=== PATIENT | male | born 1940 | race Asian ===

== ENCOUNTER 2017-02-18 16:29 | Emergency (ER) | payer MEDICARE, MEDICAID ==
[2017-02-18 17:02] VITALS: BP 130/74
[2017-02-18] MEDS ORDERED: DOXYcycline CAP(*) 100 MG PO ONE (18:51)
--- NOTE | 2017-02-18 19:17 | UC ---
General HPI - HPI Summary HPI Summary: This is a 76 yo male with history of heart disease who presents for evaluation after a tick was removed last night. Unsure how long the tick was attached. No fever or other associated symptoms. - History of Current Complaint Chief Complaint: UCSkin Stated Complaint: TICK BITE Pain Intensity: 0 - Allergy/Home Medications Allergies/Adverse Reactions: Allergies Allergy/AdvReac Type Severity Reaction Status Date / Time No Known Allergies Allergy Verified 02/18/17 17:02 PMH/Surg Hx/FS Hx/Imm Hx Cardiovascular History: Cardiac Disease - Surgical History Surgical History: None - Family History Known Family History: Positive: Hypertension - Social History Alcohol Use: None Substance Use Type: None Smoking Status (MU): Never Smoked Tobacco Review of Systems Constitutional: Negative Skin: Negative Eyes: Negative ENT: Negative Respiratory: Negative Cardiovascular: Negative Gastrointestinal: Negative Genitourinary: Negative Motor: Negative Neurovascular: Negative Musculoskeletal: Negative Neurological: Negative Psychological: Negative All Other Systems Reviewed And Are Negative: Yes Physical Exam Triage Information Reviewed: Yes Appearance: Well-Appearing Vital Signs: Initial Vital Signs Temp 98.0 F 02/18/17 16:59 Pulse 53 02/18/17 16:59 Resp 18 02/18/17 16:59 BP 130/74 02/18/17 16:59 Pulse Ox 98 02/18/17 16:59 Vital Signs Reviewed: Yes Respiratory: Positive: Chest non-tender, Lungs clear. Negative: Crackles, Rhonchi, Wheezing Cardiovascular Exam: Normal Cardiovascular: Positive: RRR, No Murmur Musculoskeletal Exam: Normal Skin: Positive: Other - small punctate area of redness where the tick was removed from his leg Course/Dx - Course Course Of Treatment: This is a 76 yo gentleman who presented after tick bite that was removed last night. Recommend prophylaxis. - Differential Dx - Multi-Symptom Provider Diagnoses: 1. Tick bite Discharge - Discharge Plan Condition: Stable Disposition: HOME Patient Education Materials: Lyme Disease (ED), Tick Bite (ED) Referrals: Laurie Dempsey MD [Primary Care Provider] - If Needed Additional Instructions: Activity: No restrictions Instructions: 1. Monitor for signs of Lyme disease 2. No further antibiotics are necessary at this time
== END 2017-02-18 19:07 | disposition home or self-care (01) ==
LOC: UCEAST 16:29
DX: S80.869A Insect bite (nonvenomous), unspecified lower leg, initial encounter (principal); W57.XXXA Bitten or stung by nonvenomous insect and other nonvenomous arthropods, initial encounter; Y93.9 Activity, unspecified; Y92.9 Unspecified place or not applicable; Y99.9 Unspecified external cause status
CPT/HCPCS: 99212; A9270-GY; G0463

== ENCOUNTER 2017-08-27 22:02 | Observation (INO) | payer MEDICARE, MEDICAID ==
[2017-08-27] MEDS ORDERED: NS 0.9% 1000 ML* 1,000 ML IV SCH ×2 (22:15→23:00)
[2017-08-27 22:39] LABS: ABS Basophils 0 10^3/ul (0-0.2); ABS Eosinophils 0.3 10^3/ul (0-0.6); ABS Lymphocytes 2.5 10^3/ul (1.0-4.8); ABS Monocytes 0.8 10^3/ul (0-0.8); ABS Neutrophils 5.4 10^3/ul (1.5-7.7); ABS Nucleated RBC 0 10^3/ul; Eosinophil % 3.3 % (0-6); Hematocrit 42 % (42-52); Hemoglobin 14.1 g/dl (14.0-18.0); Lymphocyte % 27.4 % (25-47); Mean Corpuscular HGB Conc 34 g/dl (31-36); Mean Corpuscular Hemoglobin 31 pg (27-31); Mean Corpuscular Volume 92 fL (80-94); Mean Platelet Volume 8 um3 (7.4-10.4); Nucleated Red Blood Cells % 0; Platelet Count 196 10^3/ul (150-450); Red Blood Count 4.52 10^6/ul (4.0-5.4); Red Cell Distribution Width 14 % (10.5-15); White Blood Count 9.1 10^3/ul (3.5-10.8)
[2017-08-27 22:53] LABS: INR 0.89 (0.77-1.02)
[2017-08-27 22:54] LABS: EGFR Non-African American 65.4 (>60)
[2017-08-27] MEDS ORDERED: Aspirin EC TAB* 325 MG PO ONE (22:59)
[2017-08-27] MEDS ORDERED: Aspirin EC TAB* 325 MG ONE (23:02)
[2017-08-27] MEDS ORDERED: Acetaminophen TAB* 325 MG PO PRN (23:52)
--- NOTE | 2017-08-28 00:38 | ED ---
Ovidio Barksdale Tecjoon, scribed for Simon Stubbs MD on 08/27/17 at 2300 . Progress - Progress Note Progress Note: An EKG, taken 2255, reveals NSR (66 BPM), normal axis intervals and ST. CT Head reveals, per radiologist, IMPRESSION: No CT evidence of acute cortical infarction, acute intracranial hemorrhage or hydrocephalus noted. ED physician has reviewed this radiology report. - Results/Orders Results/Orders: CBC, CMP all wnl. Head CT -- no acute changes Re-Evaluation - Re-Evaluation First Eval Change: Improved - NIHSS down to 0-1. There may be the slightest of facial droop. Course/Dx - Course Course Of Treatment: Patient's NIH stroke scale has fallen to 0-1. Telestroke neurologist recommends no TPA. We will hydrate the patient and admit him. Dr Sykes, hospitalist eval at bedside. Admit for further. Pt stable and comfortable. No headache. - Diagnoses Provider Diagnoses: TIA (transient ischemic attack), Near syncope - Provider Notifications Instructed by Provider To: Admit As Inpatient The documentation as recorded by the Ovidio tolentino Tecjoon accurately reflects the service I personally performed and the decisions made by , Simon Stubbs MD.
[2017-08-28 02:25] LABS: Urine Appearance Clear; Urine Blood 1+ (Negative); Urine Color Straw; Urine Ketones Negative (Negative); Urine Protein Negative (Negative); Urine Specific Gravity 1.005 (1.010-1.030); Urine Urobilinogen Negative (Negative)
--- NOTE | 2017-08-28 04:29 | HP ---
ADMISSION HISTORY AND PHYSICAL: DATE OF ADMISSION: 08/27/17 PRIMARY CARE PROVIDER: Dr. Dempsey. HEALTHCARE PROXY: His daughter. CODE STATUS: Full. SOURCE OF INFORMATION: History obtained from interview with the patient with both his daughter and son-in-law translating Mandarin Norwegian, discussion with both ED providers, Dr. Amos as well as . RELIABILITY: Fair to poor. CHIEF COMPLAINT: Loss of consciousness, questionable right-sided weakness. HISTORY OF PRESENT ILLNESS: This is a 77-year-old man, past medical history includes CAD with an OK of 20 years prior in [place]. He has been in his usual state of health, last known illness or malady included a fall around [place] without loss of consciousness on the evening during a Bible study where reportedly a conversation became heated and he got "worked up." He felt as if the blood was rushing from the right side of his brain to the left side of his brain, also described as a "flushing" followed by sudden loss of consciousness. The loss of consciousness may have lasted for 10 minutes, although family notes he also may have just not spoken while unconscious. He remained on the chair the entire time while he was unconscious and when he awoke there was no confusion, no slurred speech. Denied any chest pain or shortness of breath, nausea, palpitations before losing consciousness; however, after waking did feel dizzy. Denied headache, although presenting history indicated that he had had a headache, family and the patient deny vehemently. After waking, the gave him a medication, which is a Norwegian medication "for heart attack." She has the bottle with her today and it is an unmarked bottle without indication for what its contents may contain. In the emergency room, he had an episode of nausea with vomiting. He denies any numbness or tingling or weakness in any of his extremities before or after his loss of consciousness, and his only complaint was dizziness. EMS was activated and reportedly was concerned for a right-sided facial droop. Code candida was activated and upon arrival to the emergency room, it was scored as a 4 on a NIH stroke scale; however, the paperwork with the chart does not indicate for what he received any score on the NIH stroke scale. The patient was evaluated by [facility] from [place], score was 1 on the NIH stroke scale and for his improving symptoms from NIH stroke scale of 4 to 1, tPA was not recommended. The hospitalist service was consulted for admission. PAST MEDICAL HISTORY: Includes CAD with an OK approximately 20 years prior to presentation and a history of vertigo. MEDICATIONS: None. ALLERGIES: None. FAMILY HISTORY: No history of CAD or CVAs. SOCIAL HISTORY: No tobacco or alcohol. 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 He moved to the [facility] from [place] in the year 1999. He lives with his and his family lives nearby. REVIEW OF SYSTEMS: As per HPI includes sensation of dizziness and suspected loss of consciousness. Otherwise, all other systems reviewed are negative. PHYSICAL EXAMINATION GENERAL: He appears stated age, lying at 45 degrees in bed. He is interactive. He has his eyes closed. He is in no apparent distress. VITAL SIGNS: In the emergency room, blood pressure 152/85, heart rate 69, respiratory rate 15, is 96% on room air, T-max 98.2. HEENT: His oropharynx is clear. He has moist mucous membranes. His sclerae are anicteric. NECK: He has non-elevated JVD. He has no cervical or supraclavicular lymphadenopathy. LUNGS: Clear to auscultation. HEART: He has a regular rate and rhythm. He has no murmurs, rubs, or gallops. ABDOMEN: Soft, nontender, nondistended. EXTREMITIES: Warm and well perfused without clubbing, cyanosis, or edema. NEUROLOGIC: He is alert and oriented x3. His cranial nerves II through XII are intact. There was concern for potentially a slight right facial droop that improved when asked to concentrate and tried to elicit a vigorous smile. He has a 4+ strength throughout. He has a right pronator drift, downgoing Babinski. Gait was not assessed. He passed bedside swallow evaluation. No apparent anxiety, agitation, or depression. LABORATORY DATA: Reviewed. Notable for white blood cell count 9.1, hemoglobin 14.1, and platelets 196. INR 0.89. BUN 21, creatinine 1.09. LFTs are within normal limits. DIAGNOSTIC DATA: Brain CT, preliminary read, no hemorrhage, no stroke. EKG, normal sinus rhythm, normal axis, normal intervals, late R-wave progression. No ST or T-wave changes. ASSESSMENT AND PLAN: This is a 77-year-old man with a past medical history of coronary artery disease, had sudden loss of consciousness with uncertain right- sided weakness upon wakening. Per family report and patient, he did not experience any right-sided weakness, similarly experienced no headache, which was reported as a presenting symptom on presentation. I think this patient's presentation is more consistent with syncope than that of a transient ischemic attack, although given difficult acquisition of history, I support a workup for transient ischemic attack in a 77-year-old gentleman with known history of coronary artery disease, suspected vascular disease. 1. Loss of consciousness/suspected transient ischemic attack. We will check MRI of brain with MRA head and neck. Place on telemetry. Check lipids in the morning. Continue neuro checks over night. Received full dose aspirin in the emergency room, we will continue 81 in the morning. Add on hemoglobin A1c. We will not check transthoracic echocardiogram at this time given age and no vascular risk factors. Low suspicion for embolic disease, unless MRI were to change this thinking. 2. Loss of consciousness, most likely stroke in the setting of known coronary artery disease. Check troponin as well as TSH. Place on telemetry. 3. Coronary artery disease, on no medications. Start aspirin 81 mg. 4. DVT prophylaxis, heparin subcu. 5. Code status is full. [id number]/[facility] #: [id number] MTDD
[2017-08-28] MEDS ORDERED: Heparin VIAL(*) 5000 UNITS/ML VIAL (FIVE THOUSAND) SUBCUT SCH (06:00)
--- NOTE | 2017-08-28 07:43 | RAD ---
HISTORY: Stroke COMPARISONS: None TECHNIQUE: Multiple contiguous axial CT scans were obtained of the head without intravenous contrast. FINDINGS: HEMORRHAGE/INFARCT: There is no hemorrhage or acute infarct. MASSES/SHIFT: There is no mass or shift. EXTRA-AXIAL SPACES: There are no extra-axial fluid collections. SULCI AND VENTRICLES: There is mild diffuse and proportional enlargement of the sulci and ventricles. CEREBRUM: There is mild hypoattenuation of the periventricular and subcortical white matter. BRAINSTEM: There are no focal parenchymal abnormalities. CEREBELLUM: There are no focal parenchymal abnormalities. VESSELS: The vessels are grossly normal. PARANASAL SINUSES: There is mild mucosal thickening of the ethmoid air cells. ORBITS: The orbits are unremarkable. BONES AND SOFT TISSUE: No bone or soft tissue abnormalities are noted. OTHER: None IMPRESSION: 1. NO ACUTE INTRACRANIAL PATHOLOGY. 2. MILD DIFFUSE INVOLUTIONAL CHANGE WITH MILD CHRONIC SMALL VESSEL ISCHEMIC CHANGES. 3. PRELIMINARY FINDINGS WERE DISCUSSED WITH DR. MCCORMACK BY DR. MARS AT 10:39 PM ON SUNDAY, AUGUST 27, 2017.
[2017-08-28] MEDS ORDERED: Aspirin Low Dose CHEW TAB* 81 MG PO SCH (09:00)
--- NOTE | 2017-08-28 09:18 | PN ---
Progress Note - Progress Note Date of Service: 08/28/17 Note: Discharge Note Primary diagnosis: syncope Secondary diagnoses: CAD, history of [place] vertigo hypokalemia hypothyroid Consultants: none Procedures: none Complications: none Pertinent lab/radiology tests: troponin negative CT brain: involutional changes Laboratory Tests 08/27/17 08/27/17 08/28/17 22:20 22:20 06:10 Potassium 3.4 L 3.8 Glucose 136 H Hemoglobin A1c 6.0 H Magnesium 2.0 Troponin I 0.00 0.05 H* LDL Cholesterol 97 TSH 5.71 H Tests pending upon discharge: MRI brain MRA head/neck 24h holter monitor exercise treadmill test Physical exam: Alert, no distress CN II-XII intact Motor 5/5 UE, LE no pronator drift
[2017-08-28] MEDS ORDERED: Potassium Chlor TAB* 10 MEQ TAB.ER PO ONE (09:22)
[2017-08-28 11:31] VITALS: BP 131/65
--- NOTE | 2017-08-28 14:46 | ED ---
Graham Barksdale Jennifer, scribed for Viktor Amos on 08/27/17 at 2215 . Neurological HPI - HPI Summary HPI Summary: (Initial evaluation by the charge nurse desk at 22:01) The patient is a 77 year old male brought in by ambulance from his home. Twenty minutes prior to arrival (at 21:30), the patient developed a severe headache to his left side. EMS reports that the patient has generalized weakness. The patient was sent to CT. (Patient returned from CT at 22:18 and is now in room 19): I am informed that the patient vomited in the CT scanner. He complains of left- sided headache. He responds to questions. He remembers his name, age, and birthday. LEVEL 5 CAVEAT: HPI limited by state of patient - History of Current Complaint Stated Complaint: POSS STROKE Time Seen by Provider: 08/27/17 22:07 Hx Obtained From: Family/Electrical Line Splicer, EMS Hx From Patient Unobtainable Due To: Other - State of patient Onset/Duration: Started minutes ago - onset today at 21:30, Still Present Timing: Constant Current Severity: Moderate Alleviating: Nothing - Allergy/Home Medications Allergies/Adverse Reactions: Allergies Allergy/AdvReac Type Severity Reaction Status Date / Time No Known Allergies Allergy Verified 02/18/17 17:02 PMH/Surg Hx/FS Hx/Imm Hx Previously Healthy: No - LEVEL 5 CAVEAT: PMH limited by state of patient Cardiovascular History: Reports: Hx Coronary Artery Disease - Family History Known Family History: Positive: Hypertension - Social History Alcohol Use: None Substance Use Type: Reports: None Smoking Status (MU): Never Smoked Tobacco Review of Systems - ROS Summary Review of Systems Summary: LEVEL 5 CAVEAT: ROS limited by state of patient Positive: Headache - left-sided, Weakness - generalized All Other Systems Reviewed And Are Negative: No Physical Exam - Summary Physical Exam Summary: Appearance: Well appearing, no pain distress Skin: warm, dry, reflects adequate perfusion Head/face: normal Eyes: EOMI, JAYLA ENT: normal Neck: supple, non-tender Respiratory: CTA, breath sounds present Cardiovascular: RRR, pulses symmetrical Abdomen: non-tender, soft Bowel: present Musculoskeletal: normal, strength/ROM intact Neuro: Alert. Right facial droop. NIH = 4. See NIH Stroke Scale. Triage Information Reviewed: Yes Vital Signs On Initial Exam: Initial Vitals Temp Pulse Resp BP Pulse Ox 98.2 F 63 20 128/111 95 08/27/17 22:05 08/27/17 22:05 08/27/17 22:05 08/27/17 22:05 08/27/17 22:05 Vital Signs Reviewed: Yes Diagnostics - Vital Signs Vital Signs Temp Pulse Resp BP Pulse Ox 08/27/17 23:30 68 15 152/85 94 08/27/17 23:00 66 13 151/87 96 08/27/17 22:30 67 16 144/86 96 08/27/17 22:29 67 15 95 08/27/17 22:25 128/111 08/27/17 22:05 98.2 F 63 20 128/111 95 - Laboratory Lab Results: Lab Results 08/27/17 08/27/17 08/27/17 Range/Units 22:20 22:20 22:20 WBC 9.1 (3.5-10.8) 10^3/ul RBC 4.52 (4.0-5.4) 10^6/ul Hgb 14.1 (14.0-18.0) g/dl Hct 42 (42-52) % MCV 92 (80-94) fL MCH 31 (27-31) pg MCHC 34 (31-36) g/dl RDW 14 (10.5-15) % Plt Count 196 (150-450) 10^3/ul MPV 8 (7.4-10.4) um3 Neut % (Auto) 59.6 (38-83) % Lymph % (Auto) 27.4 (25-47) % [place] % (Auto) 9.2 H (1-9) % Eos % (Auto) 3.3 (0-6) % Baso % (Auto) 0.5 (0-2) % Absolute Neuts (auto) 5.4 (1.5-7.7) 10^3/ul Absolute Lymphs (auto) 2.5 (1.0-4.8) 10^3/ul Absolute Monos (auto) 0.8 (0-0.8) 10^3/ul Absolute Eos (auto) 0.3 (0-0.6) 10^3/ul Absolute Basos (auto) 0 (0-0.2) 10^3/ul Absolute Nucleated RBC 0 10^3/ul Nucleated RBC % 0 INR (Anticoag Therapy) 0.89 (0.77-1.02) APTT 29.3 (26.0-36.3) seconds Sodium 138 (133-145) mmol/L Potassium 3.4 L (3.5-5.0) mmol/L Chloride 105 (101-111) mmol/L Carbon Dioxide 25 (22-32) mmol/L Anion Gap 8 (2-11) mmol/L BUN 21 (6-24) mg/dL Creatinine 1.09 (0.67-1.17) mg/dL Est GFR ( Amer) 84.1 (>60) Est GFR (Non-Af Amer) 65.4 (>60) BUN/Creatinine Ratio 19.3 (8-20) Glucose 136 H (70-100) mg/dL Hemoglobin A1c (4.0-5.6) % Calcium 9.2 (8.6-10.3) mg/dL Total Bilirubin 0.30 (0.2-1.0) mg/dL AST 25 (13-39) U/L ALT 26 (7-52) U/L Alkaline Phosphatase 70 (34-104) U/L Troponin I 0.00 (<0.04) ng/mL Total Protein 7.1 (6.4-8.9) g/dL Albumin 4.0 (3.2-5.2) g/dL Globulin 3.1 (2-4) g/dL Albumin/Globulin Ratio 1.3 (1-3) TSH 5.71 H (0.34-5.60) mcIU/mL Blood Type Antibody Screen 08/27/17 08/27/17 Range/Units 22:20 22:20 WBC (3.5-10.8) 10^3/ul RBC (4.0-5.4) 10^6/ul Hgb (14.0-18.0) g/dl Hct (42-52) % MCV (80-94) fL MCH (27-31) pg MCHC (31-36) g/dl RDW (10.5-15) % Plt Count (150-450) 10^3/ul MPV (7.4-10.4) um3 Neut % (Auto) (38-83) % Lymph % (Auto) (25-47) % [place] % (Auto) (1-9) % Eos % (Auto) (0-6) % Baso % (Auto) (0-2) % Absolute Neuts (auto) (1.5-7.7) 10^3/ul Absolute Lymphs (auto) (1.0-4.8) 10^3/ul Absolute Monos (auto) (0-0.8) 10^3/ul Absolute Eos (auto) (0-0.6) 10^3/ul Absolute Basos (auto) (0-0.2) 10^3/ul Absolute Nucleated RBC 10^3/ul Nucleated RBC % INR (Anticoag Therapy) (0.77-1.02) APTT (26.0-36.3) seconds Sodium (133-145) mmol/L Potassium (3.5-5.0) mmol/L Chloride (101-111) mmol/L Carbon Dioxide (22-32) mmol/L Anion Gap (2-11) mmol/L BUN (6-24) mg/dL Creatinine (0.67-1.17) mg/dL Est GFR ( Amer) (>60) Est GFR (Non-Af Amer) (>60) BUN/Creatinine Ratio (8-20) Glucose (70-100) mg/dL Hemoglobin A1c 6.0 H (4.0-5.6) % Calcium (8.6-10.3) mg/dL Total Bilirubin (0.2-1.0) mg/dL AST (13-39) U/L ALT (7-52) U/L Alkaline Phosphatase (34-104) U/L Troponin I (<0.04) ng/mL Total Protein (6.4-8.9) g/dL Albumin (3.2-5.2) g/dL Globulin (2-4) g/dL Albumin/Globulin Ratio (1-3) TSH (0.34-5.60) mcIU/mL Blood Type A Positive Antibody Screen Negative Result Diagrams: 08/27/17 22:20 08/28/17 06:10 Lab Statement: Any lab studies that have been ordered have been reviewed, and results considered in the medical decision making process. NIH Scale - NIH Scale Level of Consciousness: Alert/Keenly Responsive Ask Patient the Month and His/Her Age: Both Correct Ask Pt to Open/Close Eyes and Negative Stripper/Release Non-Paretic Hand: Both Correctly Best Gaze (Only Horizontal Eye Movement): Normal Visual Field Testing: No Visual Loss Facial Paresis-Pt to Smile & Close Eyes or Grimace Symmetry: Partial Paralysis Motor Function - Right Arm: No Drift-Holds 10 Seconds Motor Function - Left Arm: No Drift-Holds 10 Seconds Motor Function - Right Leg: No Drift-Holds 10 Seconds Motor Function - Left Leg: No Drift-Holds 10 Seconds Limb Ataxia-Must be out of Proportion to Weakness Present: Absent Sensory (Use Pinprick to Test Arms/Legs/Trunk/Face): Normal Best Language (Describe Picture, Name Items): Some Loss Dysarthria (Read Several Words): Slurs Some Words Extinction and Inattention: No Abnormality Total Score: 4 Re-Evaluation - Re-Evaluation First Eval Change: Improved - NIHSS down to 0-1. There may be the slightest of facial droop. Course/Dx - Course Course Of Treatment: The radiologist calls me at 22:37 and informs me that the CT Brain is negative. TELE-STROKE is in the room at at 22:40. Assessment/Plan: The patient is a 77 year old male brought in by ambulance complaining of left-sided headache and generalized weakness. NIH = 0. CT Brain was obtained with results communicated to me over the phone by the radiologist. Tele-Stroke was in the room to evaluate the patient. The patient will be signed out to Dr. Stubbs pending further workup. - Differential Dx Differential Diagnoses Neuro: Positive: Cerebrovascular Accident, Dysrhythmia, Hemorrhage, Intracranial Bleed, Migraine, Transient Ischemic Attack, Vasovagal Reaction - Diagnoses Provider Diagnoses: TIA (transient ischemic attack), Near syncope - Critical Care Time Critical Care Time: 30-74 min Discharge - Discharge Plan Condition: Fair Disposition: ADMITTED TO [facility] Discharge Disposition Comment: Signed out to Dr. Stubbs pending further workup. The documentation as recorded by the Graham tolentino Jennifer accurately reflects the service I personally performed and the decisions made by , Viktor Amos.
[2017-08-29] MEDS ORDERED: Levothyroxine TAB* 25 MCG TAB PO SCH (06:00)
--- NOTE | 2017-08-29 21:24 | DS ---
CC: Dr. Dempsey * DISCHARGE SUMMARY: DATE OF ADMISSION: 08/27/17 DATE OF DISCHARGE: 08/28/17 PRIMARY DIAGNOSIS: Syncope. SECONDARY DIAGNOSES: 1. Coronary artery disease. 2. History of myocardial infarction 20 years ago with minimally elevated troponin. 3. Vertigo history. 4. Hypokalemia. 5. Hypothyroidism, newly diagnosed. MEDICATIONS ON DISCHARGE: 1. Aspirin 81 mg p.o. every day. 2. Levothyroxine 25 mcg p.o. q.a.m. HOSPITAL COURSE: The patient was admitted with episode of syncope and a possible unilateral weakness. He was evaluated for stroke in the emergency room , but on further questioning, no stroke symptoms or findings were found. The patient had a head CT that showed only involutional changes. The patient was admitted to telemetry and had no significant arrhythmias on monitoring. His potassium was 3.4 on admission and was 3.8 after repletion. He had a mildly elevated glucose with A1c of 6.0. His troponin initially was 0.00 and ortiz to 0.05 on the morning of discharge. His troponin was felt to be minimally elevated and did not require inpatient stress testing or other workup. His TSH was found to be 5.71 and he was started on levothyroxine for mild hypothyroidism. The patient was ambulatory in his room, tolerating food well. No further episodes of syncope. The patient is stable for discharge and is advised to see primary care within a week. He is recommended to have MRI of his brain and MR angiogram of his head and neck due to the question of TIA or stroke and syncope. The patient was advised to have a 24-hour Holter monitor to look for arrhythmias occurring during normal daily activities as well as an exercise stress test to work up the minimally elevated troponin and a history of heart disease. The case was discussed with his daughter and she agreed with the plan. DISPOSITION: To home. ACTIVITY: As tolerated. DIET: Low salt and low fat. [id number]/[facility] #: [id number] KHADIJAH
== END 2017-08-28 11:50 | disposition home or self-care (01) ==
LOC: ED 22:02 → MEDTELE 23:52
PROVIDERS: ADMIT Internal Medicine; ATTEND Internal Medicine
DX: R55 Syncope and collapse (principal); I25.10 Atherosclerotic heart disease of native coronary artery without angina pectoris; I25.2 Old myocardial infarction; Z86.69 Personal history of other diseases of the nervous system and sense organs; E87.6 Hypokalemia; E03.9 Hypothyroidism, unspecified; Z79.82 Long term (current) use of aspirin
CPT/HCPCS: 36415; 70450; 80053; 80061; 81003; 81015; 83036; 83735; 84132; 84443; 84484; 85025; 85610; 85730; 86850; 86900; 86901; 93005; 99285; A9270-GY; G0378; J1644

== ENCOUNTER 2017-11-12 23:05 | Observation (INO) | payer MEDICARE, MEDICAID ==
[2017-11-12] MEDS ORDERED: Aspirin 81 mg CHEW TAB* 81 MG TAB.CHEW PO ONE (23:29)
[2017-11-12] MEDS ORDERED: NS 0.9% 1000 ML* 1,000 ML IV ONE (23:44)
[2017-11-12] MEDS ORDERED: Metoclopramide IV* 5 MG/ML 2 ML VIAL IV ONE (23:44)
[2017-11-12] MEDS ORDERED: diPHENhydraMINE IV* 50 MG/ML 1 ml VIAL (BENADRYL) IV ONE (23:44)
[2017-11-13 00:16] LABS: ABS Basophils 0 10^3/ul (0-0.2); ABS Eosinophils 0.2 10^3/ul (0-0.6); ABS Monocytes 0.5 10^3/ul (0-0.8); ABS Nucleated RBC 0 10^3/ul; Eosinophil % 3.2 % (0-6); Hematocrit 42 % (42-52); Lymphocyte % 18.1 % (25-47); Mean Corpuscular HGB Conc 34 g/dl (31-36); Mean Corpuscular Hemoglobin 31 pg (27-31); Mean Corpuscular Volume 93 fL (80-94); Mean Platelet Volume 8.3 um3 (7.4-10.4); Nucleated Red Blood Cells % 0; Platelet Count 184 10^3/ul (150-450); Red Blood Count 4.48 10^6/ul (4.0-5.4); Red Cell Distribution Width 15 % (10.5-15); White Blood Count 5.8 10^3/ul (3.5-10.8)
[2017-11-13 00:29] LABS: EGFR Non-African American 79.6 (>60)
[2017-11-13] MEDS ORDERED: Acetaminophen TAB* 325 MG PO PRN (04:15)
[2017-11-13] MEDS ORDERED: Ondansetron INJ* 2 MG/ML VIAL IV PRN (04:15)
[2017-11-13] MEDS ORDERED: CMCS: Melatonin (NF) 3 MG TAB PO PRN (04:15)
[2017-11-13] MEDS ORDERED: NS 0.9% 1000 ML* 1,000 ML IV SCH (04:15)
--- NOTE | 2017-11-13 04:19 | HP ---
H&P (Free Text) History and Physical: PCP: Josh Dempsey MD Date/Time: 11/13/2017 0145 CC: malaise HPI: Mr Singh is a 77YO male who speaks very little Uzbek HX CAD/VA & hypothyroidism who was in his usual state of health until around 2129 when he developed rapid onset of generalized malaise, mild chest pressure, SOB, nausea, sweating, but no palpitations or light-headedness. Upon arrival, his systolic was elevated to the 170-180 range and he felt better after it came down to the 140s. Otherwise, there are no exacerbating or alleviating factors. He F/C, cough , congestion, focal W/N/T, changes in bowel/bladder, or other complaints. 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 FamHx: negative for CAD/CVA ROS: as above, otherwise reviewed and all were negative vitals: Vital Signs Temp 36.9 C 11/13/17 02:47 Pulse 59 11/13/17 02:47 Resp 17 11/13/17 02:47 BP 140/73 11/13/17 02:47 Pulse Ox 96 11/13/17 02:47 Intake & Output 11/12/17 11/12/17 11/13/17 11:59 23:59 11:59 Weight 74.843 kg Constitutional: NAD, normally developed, well-nourished elderly male HEENM: atraumatic; sclera/conjunctiva: anicteric/clear; hearing: clinically intact; oropharynx: clear, mucosa moist Neck: soft tissue: non-tender, no nuchal rigidity; thyroid: normal Pulmonary: clear to auscultation bilaterally, good aeration, no accessory muscle use CV: RR/RR, normal S1S2, no carotid bruit, no jugular venous distention, 2+ B DP/ PT, no edema Abdominal: soft, non-distended, non-tender, no rebound/guarding/rigidity, normoactive bowel sounds, no hepatosplenomegaly or masses, no costovertebral angle tenderness Musculoskeletal: general: grossly intact, no tenderness w/ palpation Integumental: normal appearance and texture of exposed skin Psychiatric orientation: AA&O to PPS affect: calm mood: cooperative eye contact: fair content: reliable per responses: timely insight: fair to good Testing: Lab Results 11/13/17 11/13/17 11/13/17 Range/Units 00:00 00:00 00:00 WBC (3.5-10.8) 10^3/ul RBC (4.0-5.4) 10^6/ul Hgb (14.0-18.0) g/dl Hct (42-52) % MCV (80-94) fL MCH (27-31) pg MCHC (31-36) g/dl RDW (10.5-15) % Plt Count (150-450) 10^3/ul MPV (7.4-10.4) um3 Neut % (Auto) (38-83) % Lymph % (Auto) (25-47) % [place] % (Auto) (0-7) % Eos % (Auto) (0-6) % Baso % (Auto) (0-2) % Absolute Neuts (auto) (1.5-7.7) 10^3/ul Absolute Lymphs (auto) (1.0-4.8) 10^3/ul Absolute Monos (auto) (0-0.8) 10^3/ul Absolute Eos (auto) (0-0.6) 10^3/ul Absolute Basos (auto) (0-0.2) 10^3/ul Absolute Nucleated RBC 10^3/ul Nucleated RBC % APTT 37.3 H (26.0-36.3) seconds Sodium 139 (139-145) mmol/L Potassium 3.8 (3.5-5.0) mmol/L Chloride 108 (101-111) mmol/L Carbon Dioxide 23 (22-32) mmol/L Anion Gap 8 (2-11) mmol/L BUN 17 (6-24) mg/dL Creatinine 0.92 (0.67-1.17) mg/dL Est GFR ( Amer) 102.3 (>60) Est GFR (Non-Af Amer) 79.6 (>60) BUN/Creatinine Ratio 18.5 (8-20) Glucose 123 H (70-100) mg/dL Lactic Acid (0.5-2.0) mmol/L Calcium 8.8 (8.6-10.3) mg/dL Total Bilirubin 0.30 (0.2-1.0) mg/dL AST 24 (13-39) U/L ALT 29 (7-52) U/L Alkaline Phosphatase 64 (34-104) U/L Total Creatine Kinase 95 (10-223) U/L Troponin I 0.02 (<0.04) ng/mL B-Natriuretic Peptide 29 ( - 100) pg/mL Total Protein 6.9 (6.4-8.9) g/dL Albumin 4.0 (3.2-5.2) g/dL Globulin 2.9 (2-4) g/dL Albumin/Globulin Ratio 1.4 (1-3) TSH 4.09 (0.34-5.60) mcIU/mL 11/13/17 11/13/17 Range/Units 00:00 00:00 WBC 5.8 (3.5-10.8) 10^3/ul RBC 4.48 (4.0-5.4) 10^6/ul Hgb 14.0 (14.0-18.0) g/dl Hct 42 (42-52) % MCV 93 (80-94) fL MCH 31 (27-31) pg MCHC 34 (31-36) g/dl RDW 15 (10.5-15) % Plt Count 184 (150-450) 10^3/ul MPV 8.3 (7.4-10.4) um3 Neut % (Auto) 68.6 (38-83) % Lymph % (Auto) 18.1 L (25-47) % [place] % (Auto) 9.4 H (0-7) % Eos % (Auto) 3.2 (0-6) % Baso % (Auto) 0.7 (0-2) % Absolute Neuts (auto) 4.0 (1.5-7.7) 10^3/ul Absolute Lymphs (auto) 1.0 (1.0-4.8) 10^3/ul Absolute Monos (auto) 0.5 (0-0.8) 10^3/ul Absolute Eos (auto) 0.2 (0-0.6) 10^3/ul Absolute Basos (auto) 0 (0-0.2) 10^3/ul Absolute Nucleated RBC 0 10^3/ul Nucleated RBC % 0 APTT (26.0-36.3) seconds Sodium (139-145) mmol/L Potassium (3.5-5.0) mmol/L Chloride (101-111) mmol/L Carbon Dioxide (22-32) mmol/L Anion Gap (2-11) mmol/L BUN (6-24) mg/dL Creatinine (0.67-1.17) mg/dL Est GFR ( Amer) (>60) Est GFR (Non-Af Amer) (>60) BUN/Creatinine Ratio (8-20) Glucose (70-100) mg/dL Lactic Acid 1.2 (0.5-2.0) mmol/L Calcium (8.6-10.3) mg/dL Total Bilirubin (0.2-1.0) mg/dL AST (13-39) U/L ALT (7-52) U/L Alkaline Phosphatase (34-104) U/L Total Creatine Kinase (10-223) U/L Troponin I (<0.04) ng/mL B-Natriuretic Peptide ( - 100) pg/mL Total Protein (6.4-8.9) g/dL Albumin (3.2-5.2) g/dL Globulin (2-4) g/dL Albumin/Globulin Ratio (1-3) TSH (0.34-5.60) mcIU/mL ECG, personally reviewed: sinus bradycardia rate 58, no ischemia CXR, personally reviewed: no acute process Impression: 77M HX CAD/VA & hypothyroidism presents w/ chest pain for r/o ACS DIAGNOSIS & PLAN Primary chest pain r/o ACS : HX CAD/VA : telemetry : trend troponin : aspirin given in ED : check ECHO : supplemental oxygen : supportive care Secondary hypothyroidism : continue levothyroxine once reconciled Admission Rational: observation for r/o ACS DVTp: SCDs Code Status: full HCP:
--- NOTE | 2017-11-13 04:49 | ED ---
Ovidio Barksdale Tecjoon, scribed for Simon Stubbs MD on 11/12/17 at 2345 . 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 Patient states that he is not comfortable and seems to be in mild distress. The pain is rated 5/10 in severity. Symptoms aggravated by nothing. Symptoms alleviated by nothing. 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 Patient additionally reports headache. Patient denies vomiting, diaphoresis, SOB, chest pain. Patient was admitted on 08/27/2017, discharged 08/29. Dx with coronary artery disease, [place] 30 years ago. - History of Current Complaint Chief Complaint: EDChestPainROMI Stated Complaint: CHEST PAIN Time Seen by Provider: 11/12/17 23:35 Hx Obtained From: Patient Onset/Duration: Still Present Timing: Constant Current Severity: Moderate Pain Intensity: 5 Pain Scale Used: 0-10 Numeric Aggravating Factor(s): Nothing Alleviating Factor(s): Nothing Associated Signs and Symptoms: Positive: Negative - vomiting, diaphoresis, SOB, chest pain, Other: - headache - Allergy/Home Medications Allergies/Adverse Reactions: Allergies Allergy/AdvReac Type Severity Reaction Status Date / Time No Known Allergies Allergy Verified 02/18/17 17:02 PMH/Surg Hx/FS Hx/Imm Hx Previously Healthy: No Cardiovascular History: Reports: Hx Coronary Artery Disease Sensory History: Denies: Hx Contacts or Glasses, Hx Hearing Aid Opthamlomology History: Denies: Hx Contacts or Glasses Infectious Disease History: No Infectious Disease History: Denies: Traveled Outside the [place] in Last 30 Days - Family History Known Family History: Positive: Hypertension - Social History Lives: With Family Alcohol Use: None Hx Substance Use: No Substance Use Type: Reports: None Hx Tobacco Use: No Smoking Status (MU): Never Smoked Tobacco Review of Systems Negative: Fever, Skin Diaphoresis Positive: Other - elevated BP. Negative: Chest Pain Negative: Shortness Of Breath Negative: Vomiting Negative: Headache All Other Systems Reviewed And Are Negative: Yes Physical Exam - Summary Physical Exam Summary: Appearance: Well appearing, Looks uncomfortable Skin: warm, dry, reflects adequate perfusion Head/face: No temporal artery tenderness Eyes: EOMI, JAYLA ENT: normal Neck: supple, non-tender Respiratory: CTA, breath sounds present Cardiovascular: Bradycardic but regular Abdomen: non-tender, soft Bowel Sounds: present Musculoskeletal: normal, strength/ROM intact Neuro: normal, sensory motor intact, A&Ox3 Triage Information Reviewed: Yes Vital Signs On Initial Exam: Initial Vitals Temp Pulse Resp BP Pulse Ox 98.2 F 68 16 172/82 96 11/12/17 23:05 11/12/17 23:05 11/12/17 23:05 11/12/17 23:05 11/12/17 23:05 Vital Signs Reviewed: Yes Diagnostics - Vital Signs Vital Signs Temp Pulse Resp BP Pulse Ox 11/12/17 23:05 98.2 F 68 16 172/82 96 - Laboratory Lab Results: Lab Results 11/13/17 11/13/17 11/13/17 Range/Units 00:00 00:00 00:00 WBC (3.5-10.8) 10^3/ul RBC (4.0-5.4) 10^6/ul Hgb (14.0-18.0) g/dl Hct (42-52) % MCV (80-94) fL MCH (27-31) pg MCHC (31-36) g/dl RDW (10.5-15) % Plt Count (150-450) 10^3/ul MPV (7.4-10.4) um3 Neut % (Auto) (38-83) % Lymph % (Auto) (25-47) % [place] % (Auto) (0-7) % Eos % (Auto) (0-6) % Baso % (Auto) (0-2) % Absolute Neuts (auto) (1.5-7.7) 10^3/ul Absolute Lymphs (auto) (1.0-4.8) 10^3/ul Absolute Monos (auto) (0-0.8) 10^3/ul Absolute Eos (auto) (0-0.6) 10^3/ul Absolute Basos (auto) (0-0.2) 10^3/ul Absolute Nucleated RBC 10^3/ul Nucleated RBC % APTT 37.3 H (26.0-36.3) seconds Sodium 139 (139-145) mmol/L Potassium 3.8 (3.5-5.0) mmol/L Chloride 108 (101-111) mmol/L Carbon Dioxide 23 (22-32) mmol/L Anion Gap 8 (2-11) mmol/L BUN 17 (6-24) mg/dL Creatinine 0.92 (0.67-1.17) mg/dL Est GFR ( Amer) 102.3 (>60) Est GFR (Non-Af Amer) 79.6 (>60) BUN/Creatinine Ratio 18.5 (8-20) Glucose 123 H (70-100) mg/dL Lactic Acid (0.5-2.0) mmol/L Calcium 8.8 (8.6-10.3) mg/dL Total Bilirubin 0.30 (0.2-1.0) mg/dL AST 24 (13-39) U/L ALT 29 (7-52) U/L Alkaline Phosphatase 64 (34-104) U/L Total Creatine Kinase 95 (10-223) U/L Troponin I 0.02 (<0.04) ng/mL B-Natriuretic Peptide 29 ( - 100) pg/mL Total Protein 6.9 (6.4-8.9) g/dL Albumin 4.0 (3.2-5.2) g/dL Globulin 2.9 (2-4) g/dL Albumin/Globulin Ratio 1.4 (1-3) TSH 4.09 (0.34-5.60) mcIU/mL 11/13/17 11/13/17 Range/Units 00:00 00:00 WBC 5.8 (3.5-10.8) 10^3/ul RBC 4.48 (4.0-5.4) 10^6/ul Hgb 14.0 (14.0-18.0) g/dl Hct 42 (42-52) % MCV 93 (80-94) fL MCH 31 (27-31) pg MCHC 34 (31-36) g/dl RDW 15 (10.5-15) % Plt Count 184 (150-450) 10^3/ul MPV 8.3 (7.4-10.4) um3 Neut % (Auto) 68.6 (38-83) % Lymph % (Auto) 18.1 L (25-47) % [place] % (Auto) 9.4 H (0-7) % Eos % (Auto) 3.2 (0-6) % Baso % (Auto) 0.7 (0-2) % Absolute Neuts (auto) 4.0 (1.5-7.7) 10^3/ul Absolute Lymphs (auto) 1.0 (1.0-4.8) 10^3/ul Absolute Monos (auto) 0.5 (0-0.8) 10^3/ul Absolute Eos (auto) 0.2 (0-0.6) 10^3/ul Absolute Basos (auto) 0 (0-0.2) 10^3/ul Absolute Nucleated RBC 0 10^3/ul Nucleated RBC % 0 APTT (26.0-36.3) seconds Sodium (139-145) mmol/L Potassium (3.5-5.0) mmol/L Chloride (101-111) mmol/L Carbon Dioxide (22-32) mmol/L Anion Gap (2-11) mmol/L BUN (6-24) mg/dL Creatinine (0.67-1.17) mg/dL Est GFR ( Amer) (>60) Est GFR (Non-Af Amer) (>60) BUN/Creatinine Ratio (8-20) Glucose (70-100) mg/dL Lactic Acid 1.2 (0.5-2.0) mmol/L Calcium (8.6-10.3) mg/dL Total Bilirubin (0.2-1.0) mg/dL AST (13-39) U/L ALT (7-52) U/L Alkaline Phosphatase (34-104) U/L Total Creatine Kinase (10-223) U/L Troponin I (<0.04) ng/mL B-Natriuretic Peptide ( - 100) pg/mL Total Protein (6.4-8.9) g/dL Albumin (3.2-5.2) g/dL Globulin (2-4) g/dL Albumin/Globulin Ratio (1-3) TSH (0.34-5.60) mcIU/mL Result Diagrams: 11/13/17 00:00 11/13/17 00:00 Lab Statement: Any lab studies that have been ordered have been reviewed, and results considered in the medical decision making process. - Radiology CXR Xray Interpretation: No Acute Changes - CXR reveals, per radiologist, IMPRESSION : No Acute Process. ED physician has reviewed this radiology report. Radiology Interpretation Completed By: Radiologist - EKG 2308 Cardiac Rate: NL EKG Rhythm: Sinus Bradycardia - 58 BPM EKG Interpretation: Normal axis, normal interval, normal ST. Re-Evaluation - Re-Evaluation First Eval Change: Improved - some improvement but still appears uncomfortable/malaised Disposition - Course Course Of Treatment: Pt with several vague complaints, mostly some CP and frontal YUN. YUN treated with relief. Pt cont to feel malaised. ASA given. No acute ST change or trop elevation. Even despite use of hotel or motel receptionist there is poor hx coming from the patient. d/w hospitalist who will admit for further, cardiac r/o. - Differential Dx - Cardiopulmonary Differential Diagnoses - Cardiopulmonary: Acute Coronary, CAD, CHF, Lower Resp Infection, Other - headache/SAH/SDH - Diagnoses Provider Diagnoses: Chest pain, Frontal headache, Elevated blood pressure reading - Physician Notifications Discussed Care Of Patient With: Sami Oliver - admit for further Discharge - Sign-Out/Discharge Documenting (check all that apply): Discharge - Discharge Plan Condition: Stable Disposition: ADMITTED TO [facility] - Billing Disposition and Condition Condition: STABLE Disposition: [facility] [place] The documentation as recorded by the Ovidio tolentino Tecjoon accurately reflects the service I personally performed and the decisions made by , Simon Stubbs MD.
[2017-11-13] MEDS ORDERED: Omeprazole CAP* 20 MG PO SCH (06:00)
[2017-11-13] MEDS ORDERED: Docusate CAP* 100 MG PO SCH (09:00)
[2017-11-13] MEDS ORDERED: Levothyroxine TAB* 25 MCG TAB PO ONE (09:26)
--- NOTE | 2017-11-13 09:59 | RAD ---
INDICATION: Chest pain and shortness of breath COMPARISON: Most recent comparison chest x-ray January 21, 2015 TECHNIQUE: Single AP portable view of the chest was obtained. FINDINGS: Image quality is compromised due to the relative inferiority of a portable chest x-ray. The heart and mediastinum exhibit normal size and contour. The lungs are grossly clear. There is no evidence of a large pleural effusion. Visualized bones are normal for the patient's age. IMPRESSION: No radiographic evidence for acute cardiopulmonary abnormality on this portable chest x-ray.
[2017-11-13 13:04] VITALS: BP 123/68
--- NOTE | 2017-11-13 13:58 | DS ---
CC: Dr. Dempsey; Dr. Reaves * DISCHARGE SUMMARY: DATE OF ADMISSION: 11/13/17 DATE OF DISCHARGE: 11/13/17 PROVIDER: Bob Castellanos NP ATTENDING PHYSICIAN: Dr. Owens * (report dictated by Bob Castellanos NP). PRIMARY CARE PROVIDER: Laurie Dempsey MD. [facility]IL[facility] ADMINISTRATOR: Dr. Reaves. DISCHARGE DIAGNOSES: 1. Chest pressure. 2. Abnormal blood glucose. SECONDARY DIAGNOSES: 1. History of coronary artery disease. 2. Hypothyroidism. HISTORY OF PRESENT ILLNESS AND HOSPITAL COURSE: Please see history and physical by Dr. Oliver for full admission details. But in summary, this is a 77-year-old male with the past medical history of coronary artery disease, status post NV, and history of hypothyroidism, who was admitted to the hospitalist team on 11/13/17 (yesterday) for rapid onset of general malaise, mild chest discomfort, shortness of breath, nausea, sweating. He was brought to the emergency department by his daughter and was noted to initially have high blood pressures with systolic pressures in 170s range. Per the admitting physician's note, he felt much better once they came down to 140s in the emergency department which happened pretty quickly. He was feeling much better at the time of admission, but due to his history he was admitted to the hospitalist service on observation for chest pain, rule out ACS. The patient was admitted to telemetry and has had 3 negative troponins 0.02, 0.01, and 0.01. His EKG shows sinus bradycardia with a rate of 58 with no noted ischemia. The patient has denied any further symptoms since being admitted and reports he feels at his baseline and would like to go home. The patient does not speak Cam[place]onian very well and his daughter is at the bedside translating. She also reports that his symptoms are very vague and states that his symptoms did last several hours last evening; however, did resolve pretty quickly and now he is back at his baseline. She reports that he just had a stress test at his director of academic support office this past week in which she believes was normal, but the patient has not had the followup with the director of academic support for the results. Again this morning the patient is ambulating and is at his baseline and the vague symptoms of general malaise, mild chest pressure, shortness of breath, nausea, and sweating have resolved. The patient is stable for discharge home with close followup with his primary care provider and director of academic support. Unclear etiology behind his symptoms per the daughter, in the last several months intermittently he has been having complaints of vague symptoms. I do note that his hemoglobin A1c back in August is 6 and it is possible that some of these symptoms he is experiencing are due to abnormal blood sugar. He is noted to have hemoglobin A1c of 6. Some of his symptoms could be due to abnormal blood glucose as his vague symptoms do sound like possibly he could be having some hypoglycemic events. I discussed this with the patient and the daughter and have referred the patient to [facility] as this may help him stabilize his blood sugar through diet in which the patient is interested in doing so. REVIEW OF SYSTEMS: A 14-point review of systems was performed. All the pertinent positives are mentioned in the history of present illness. Otherwise are negative. PHYSICAL EXAMINATION: Vital Signs: Temperature 97.4, heart rate 59, respirations 18, blood pressure 123/69, O2 sat 97% on room air. General Appearance: A 77-year- old healthy appearing male, sitting up on bed, alert and oriented x3, in no acute distress. HEENT: Head is normocephalic, atraumatic. Pupils are equal and reactive to light. Oropharynx is clear. Moist mucous membranes. Cardiac: S1 and S2. Regular rate and rhythm. No murmurs, rubs, or gallops appreciated. Lungs: Clear to auscultation bilaterally. Good aeration throughout. Abdomen: Soft, nontender, and nondistended. Normal bowel sounds throughout. Extremities: Moves all extremities. Strength is 5/5 throughout. Ambulating with normal gait. Neurologic: Alert and oriented x3. No focal deficits noted. DISCHARGE PLAN: Follow up with Dr. Dempsey within 3 to 5 days. I discussed with the patient his abnormal blood glucose and referral to [facility]. In regards to the patient's vague chest discomfort, it is unclear etiology; however, acute coronary syndrome was been ruled out. He has had 3 negative troponins, no EKG changes, and per daughter had a stress test 3 to 4 days ago, which she believes was normal. Due to being the weekend I am unable to get the results of the cardiac stress test and discussed with the daughter that he should follow up with his primary care this week to discuss those test results. The patient is stable for discharge to home. TIME SPENT: Approximately 60 minutes was spent on this discharge. BOB CASTELLANOS NP [id number]/[facility] #: [id number] KHADIJAH
[2017-11-14] MEDS ORDERED: Levothyroxine TAB* 25 MCG TAB PO SCH (06:00)
[2017-11-14] MEDS ORDERED: Aspirin EC TAB* 81 MG TAB.EC PO SCH (09:00)
== END 2017-11-13 13:30 | disposition home or self-care (01) ==
LOC: ED 23:05 → MEDTELE 11-13 01:48
PROVIDERS: ADMIT Hospitalist; ATTEND Internal Medicine
DX: R07.89 Other chest pain (principal); E03.9 Hypothyroidism, unspecified; I25.10 Atherosclerotic heart disease of native coronary artery without angina pectoris; I25.2 Old myocardial infarction; Z79.82 Long term (current) use of aspirin; Z79.899 Other long term (current) drug therapy; Z82.49 Family history of ischemic heart disease and other diseases of the circulatory system; R51 Headache; R03.0 Elevated blood-pressure reading, without diagnosis of hypertension
CPT/HCPCS: 36415; 71045; 80053; 82550; 83605; 83880; 84443; 84484; 85025; 85730; 93005; 96374; 96375; 99284; A9270-GY; G0378; G8978-GP-CH; G8979-GP-CH; G8980-GP-CH

== ENCOUNTER 2018-01-26 08:48 | Emergency (ER) | payer MEDICARE, MEDICAID ==
--- NOTE | 2018-01-26 09:54 | RAD ---
Indication: Sensation of small fishbone stuck in neck following injury last night. RIGHT side pain below jaw. Comparison: July 05, 2008 Technique: AP and lateral views of the neck with soft tissue technique. Report: Edentulous with senile morphology mandible. Calcification of the cartilage of the larynx noted. No conspicuous foreign body or abnormal soft tissue gas collection evident. Pharyngeal, laryngeal, and tracheal air columns are normal in contour. The epiglottis is normal. Unremarkable prevertebral soft tissue contours. 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 Moderate C5-C6 and severe C6-C7 disc space narrowing with mild progression compared with the 2008 exam. IMPRESSION: No conspicuous foreign body or abnormal soft tissue gas collection evident.
--- NOTE | 2018-01-26 10:36 | RAD ---
INDICATION: Sensation of retained fishbone in the RIGHT side of the throat since last night. Pain with swallowing. COMPARISON: Soft tissue technique neck radiographs of the same date. TECHNIQUE: Multidetector CT images skull base to lung apices without IV contrast. Multiplanar reformation. REPORT: Bilateral apical scarring noted at the lung apices. Small rounded in morphology calcifications noted at the bilateral palatine tonsils without concern. No conspicuous foreign bodies evident at the pharynx, hypopharynx or visualized esophagus. Unremarkable pharyngeal mucosal space contours. Symmetric clear parapharyngeal fat. No abnormal gas or fluid collection evident. Unremarkable false and true vocal cords and visualized subglottic airway. Unremarkable thyroid, submandibular, and parotid glands. Grossly clear paranasal sinuses and mastoid air spaces. Unremarkable orbital contents. Edentulous with senile morphology mandible. Multilevel degenerative spondylosis and facet joint osteoarthritis of the cervical spine moderate in severity at C5-C6 and severe at C6-C7 as noted on radiographs. Negative for fracture or presence of a suspicious focal osseous lesion. IMPRESSION: No conspicuous foreign bodies evident at the pharynx, hypopharynx or visualized esophagus. No abnormal gas or fluid collection evident.
[2018-01-26] MEDS ORDERED: Lidocaine 2% VISCOUS* 15 ML UDC SWISH SPIT ONE (11:12)
--- NOTE | 2018-01-26 11:32 | ED ---
Babar Barksdale Tiffany, scribed for Corona Amosuel on 01/26/18 at 0920 . Throat Pain/Nasal Congestion - HPI Summary HPI Summary: 77 year old M presenting to [facility] complains of right-sided throat pain since 20: 00 yesterday. The patient rates the pain 6/10 in severity. Symptoms aggravated by nothing. Symptoms alleviated by nothing. Patient denies chest pain. States he was eating fish last night for dinner, feels like he has a bone stuck in his throat. - History of Current Complaint Chief Complaint: EDForeignBodyEsophag Time Seen by Provider: 01/26/18 09:03 Hx Obtained From: Patient Onset/Duration: Lasting Hours - 20:00 yesterday, Still Present - Allergies/Home Medications Allergies/Adverse Reactions: Allergies Allergy/AdvReac Type Severity Reaction Status Date / Time No Known Allergies Allergy Verified 01/26/18 08:57 PMH/Surg Hx/FS Hx/Imm Hx Previously Healthy: No Endocrine/Hematology History: Reports: Hx Thyroid Disease - hypothyroid Cardiovascular History: Reports: Hx Coronary Artery Disease, Hx Myocardial Infarction Sensory History: Denies: Hx Contacts or Glasses, Hx Hearing Aid Opthamlomology History: Denies: Hx Contacts or Glasses Neurological History: Reports: Hx Transient Ischemic Attacks (TIA) - Surgical History Surgery Procedure, Year, and Place: none Infectious Disease History: No Infectious Disease History: Denies: Traveled Outside the [place] in Last 30 Days - Family History Known Family History: Positive: Hypertension - Social History Alcohol Use: None Hx Substance Use: No Substance Use Type: Reports: None Hx Tobacco Use: No Smoking Status (MU): Never Smoked Tobacco Review of Systems Positive: Other - right-sided throat pain Negative: Chest Pain All Other Systems Reviewed And Are Negative: Yes Physical Exam - Summary Physical Exam Summary: Appearance: Well appearing, no pain distress Skin: warm, dry, reflects adequate perfusion Head/face: normal Eyes: EOMI, JAYLA ENT: normal Neck: tenderness over the right side of the neck Respiratory: CTA, breath sounds present Cardiovascular: RRR, pulses symmetrical Abdomen: non-tender, soft Bowel: present Musculoskeletal: normal, strength/ROM intact Neuro: normal, sensory motor intact, A&Ox3 Triage Information Reviewed: Yes Vital Signs On Initial Exam: Initial Vitals Temp Pulse Resp BP Pulse Ox 97.8 F 62 16 133/77 96 01/26/18 08:54 01/26/18 08:54 01/26/18 08:54 01/26/18 08:54 01/26/18 08:54 Vital Signs Reviewed: Yes Diagnostics - Vital Signs Vital Signs Temp Pulse Resp BP Pulse Ox 01/26/18 08:54 97.8 F 62 16 133/77 96 - Laboratory Lab Statement: Any lab studies that have been ordered have been reviewed, and results considered in the medical decision making process. - Radiology Neck Radiology Interpretation Completed By: Radiologist - No conspicuous foreign body or abnormal soft tissue gas collection evident. ED physician has reviewed this report. - CT Neck CT Interpretation Completed By: Radiologist - No conspicuous foreign bodies evident at the pharynx, hypopharynx or visualized esophagus. No abnormal gas or fluid collection evident. ED physician has reviewed this report. Re-Evaluation - Re-Evaluation First Eval Re-Evaluation Time: 11:13 Comment: Patient informed that there is no ENT coverage today. He does not want to go to [facility] for further evaluation so he is agreeable to discharge. EENT Course/Dx - Course Course Of Treatment: 77 year old M presenting to [facility] complains of right-sided throat pain since 20:00 yesterday. Neck XRAY and Neck CT were negative. There is no ENT coverage at [facility] today. Patient does not want to go to [facility] for further eval from ENT. He will be discharged home with Lidocaine and follow up from ENT. - Differential Diagnoses Differential Diagnoses: Foreign Body, Other - injury throat by fish bone - Diagnoses Provider Diagnoses: Throat pain Discharge - Sign-Out/Discharge Documenting (check all that apply): Discharge/Admit/Transfer - discharge - Discharge Plan Condition: Stable Disposition: HOME Prescriptions: Lidocaine 2% VISCOUS* [Xylocaine 2% Viscous*] 15 ml SWISH SPIT Q6H PRN #15 btl MDD 3 PRN Reason: Pain Referrals: Laurie Dempsey MD [Primary Care Provider] - Fletcher Aguirre MD [Medical Doctor] - 2 Days Additional Instructions: Follow up with Dr. Aguirre, ENT, in 2 days. Return to the Emergency Department for new or worsening symptoms. - Billing Disposition and Condition Condition: STABLE Disposition: Home The documentation as recorded by the Babar tolentino Tiffany accurately reflects the service I personally performed and the decisions made by me, Viktor Amos.
[2018-01-26 11:40] VITALS: BP 146/87
== END 2018-01-26 11:40 | disposition home or self-care (01) ==
LOC: ED 08:48
DX: J02.9 Acute pharyngitis, unspecified (principal); I25.10 Atherosclerotic heart disease of native coronary artery without angina pectoris; I25.2 Old myocardial infarction
CPT/HCPCS: 70360; 70490; 99282

== ENCOUNTER 2018-02-15 11:27 | Emergency (ER) | payer MEDICARE, MEDICAID ==
--- NOTE | 2018-02-15 11:47 | ED ---
HPI Chest Pain - HPI Summary HPI Summary: 77 y/o male BIBA c/o YUN earlier today. Pt was walking up a hill and also developed severe YUN, lightheadedness and dizziness. Pt feeling slightly better now. Denies SOB. Several days ago the pt had increased urinary frequency, per pt 's daughter. Most information provided by the pt's daughter. Similar episode 2 months ago. - History of Current Complaint Chief Complaint: EDWeakness Time Seen by Provider: 02/15/18 11:36 Hx Obtained From: Patient Onset/Duration: Started Hours Ago Pain Intensity: 0 Aggravating Factor(s): Nothing Alleviating Factor(s): Nothing Associated Signs and Symptoms: Positive: Headaches, Dizziness, Lightheadedness. Negative: Shortness of Breath - Additional Pertinent History Primary Care Physician: LAURA - Allergy/Home Medications Allergies/Adverse Reactions: Allergies Allergy/AdvReac Type Severity Reaction Status Date / Time No Known Allergies Allergy Verified 01/26/18 08:57 PMH/Surg Hx/FS Hx/Imm Hx Endocrine/Hematology History: Reports: Hx Thyroid Disease - hypothyroid Cardiovascular History: Reports: Hx Coronary Artery Disease, Hx Myocardial Infarction Sensory History: Denies: Hx Contacts or Glasses, Hx Hearing Aid Opthamlomology History: Denies: Hx Contacts or Glasses Neurological History: Reports: Hx Transient Ischemic Attacks (TIA) - Surgical History Surgery Procedure, Year, and Place: none Infectious Disease History: No Infectious Disease History: Denies: Traveled Outside the [place] in Last 30 Days - Family History Known Family History: Positive: Hypertension - Social History Alcohol Use: None Hx Substance Use: No Substance Use Type: Reports: None Hx Tobacco Use: No Smoking Status (MU): Never Smoked Tobacco Review of Systems Constitutional: Negative Eyes: Negative ENT: Negative Positive: Chest Pain Respiratory: Negative Gastrointestinal: Negative Genitourinary: Negative Musculoskeletal: Negative Skin: Negative Neurological: Other - dizziness, lightheadedness Positive: Headache Psychological: Normal All Other Systems Reviewed And Are Negative: Yes Physical Exam - Summary Physical Exam Summary: Appearance: The patient is well-nourished in no acute distress and in no acute pain. Skin: The skin is warm and dry and skin color reflects adequate perfusion. HEENT: The head is normocephalic and atraumatic. The pupils are equal and reactive. The conjunctivae are clear and without drainage. Nares are patent and without drainage. Mouth reveals moist mucous membranes and the throat is without erythema and exudate. The external ears are intact. The ear canals are patent and without drainage. The tympanic membranes are intact. Neck: The neck is supple with full range of motion and non-tender. There are no carotid bruits. There is no neck vein distension. Respiratory: Chest is non-tender. Lungs are clear to auscultation and breath sounds are symmetrical and equal. Cardiovascular: Heart is regular rate and rhythm. There is no murmur or rub auscultated. There is no peripheral edema and pulses are symmetrical and equal. Abdomen: The abdomen is soft and non-tender. There are normal bowel sounds heard in all four quadrants and there is no organomegaly palpated. Musculoskeletal: There is no back tenderness noted. Extremities are non-tender with full range of motion. There is good capillary refill. There is no peripheral edema or calf tenderness elicited. Neurological: Patient is alert and oriented to person, place and time. The patient has symmetrical motor strength in all four extremities. Cranial nerves are grossly intact. Deep tendon reflexes are symmetrical and equal in all four extremities. Psychiatric: The patient has an appropriate affect and does not exhibit any anxiety or depression. Triage Information Reviewed: Yes Vital Signs On Initial Exam: Initial Vitals Temp Pulse Resp BP Pulse Ox 97.8 F 57 16 133/89 94 02/15/18 11:32 02/15/18 11:32 02/15/18 11:32 02/15/18 11:32 02/15/18 11:32 Vital Signs Reviewed: Yes Diagnostics - Vital Signs Vital Signs Temp Pulse Resp BP Pulse Ox 02/15/18 11:32 97.8 F 57 16 133/89 94 - Laboratory Lab Statement: Any lab studies that have been ordered have been reviewed, and results considered in the medical decision making process. Discharge - Discharge Plan Referrals: Laurie Dempsey MD [Primary Care Provider] -
--- NOTE | 2018-02-15 11:49 | ED ---
Syncope/Near Syncope - HPI Summary HPI Summary: 77 y/o male KAL c/o near syncopal episode earlier today. Pt was walking up a hill and developed severe YUN, lightheadedness and dizziness. Pt feeling slightly better now. Denies SOB. Several days ago the pt had increased urinary frequency, per pt's daughter. Most information provided by the pt's daughter. Similar episode 2 months ago. - History Of Current Complaint Chief Complaint: EDWeakness Time Seen by Provider: 02/15/18 11:36 Hx Obtained From: Patient Onset/Duration: Sudden Onset, Resolved Activity At Onset: Exertion Aggravating Factor(s): Nothing Alleviating Factor(s): Nothing Associated Signs And Symptoms: Headache, Lightheadedness, Other - dizziness - Allergies/Home Medications Allergies/Adverse Reactions: Allergies Allergy/AdvReac Type Severity Reaction Status Date / Time No Known Allergies Allergy Verified 02/15/18 12:02 Home Medications: Home Medications Aspirin EC TAB* [Ecotrin EC Low Dose 81 MG*] 81 mg PO DAILY 02/15/18 [History Confirmed 02/15/18] Azelastine 0.05% (OPHTH)(NF) [Optivar 0.05% (NF)] 1 drop BOTH EYES BID 02/15/18 [History Confirmed 02/15/18] Levothyroxine TAB* [Synthroid TAB*] 25 mcg PO DAILY 02/15/18 [History Confirmed 02/15/18] Omeprazole CAP* [Prilosec CAP* 20 MG] 20 mg PO DAILY 02/15/18 [History Confirmed 02/15/18] PMH/Surg Hx/FS Hx/Imm Hx Previously Healthy: No Endocrine/Hematology History: Reports: Hx Thyroid Disease - hypothyroid Cardiovascular History: Reports: Hx Coronary Artery Disease, Hx Myocardial Infarction Sensory History: Denies: Hx Contacts or Glasses, Hx Hearing Aid Opthamlomology History: Denies: Hx Contacts or Glasses Neurological History: Reports: Hx Transient Ischemic Attacks (TIA) - Surgical History Surgery Procedure, Year, and Place: none Infectious Disease History: No Infectious Disease History: Denies: Traveled Outside the [place] in Last 30 Days - Family History Known Family History: Positive: Hypertension - Social History Alcohol Use: None Hx Substance Use: No Substance Use Type: Reports: None Hx Tobacco Use: No Smoking Status (MU): Never Smoked Tobacco Review of Systems Constitutional: Negative Eyes: Negative ENT: Negative Positive: Chest Pain Respiratory: Negative Gastrointestinal: Negative Genitourinary: Negative Musculoskeletal: Negative Skin: Negative Neurological: Other - dizziness, lightheadedness Positive: Headache Psychological: Normal All Other Systems Reviewed And Are Negative: Yes Physical Exam - Summary Physical Exam Summary: Appearance: The patient is well-nourished in no acute distress and in no acute pain. Skin: The skin is warm and dry and skin color reflects adequate perfusion. HEENT: The head is normocephalic and atraumatic. The pupils are equal and reactive. The conjunctivae are clear and without drainage. Nares are patent and without drainage. Mouth reveals moist mucous membranes and the throat is without erythema and exudate. The external ears are intact. The ear canals are patent and without drainage. The tympanic membranes are intact. Neck: The neck is supple with full range of motion and non-tender. There are no carotid bruits. There is no neck vein distension. Respiratory: Chest is non-tender. Lungs are clear to auscultation and breath sounds are symmetrical and equal. Cardiovascular: Heart is regular rate and rhythm. There is no murmur or rub auscultated. There is no peripheral edema and pulses are symmetrical and equal. Abdomen: The abdomen is soft and non-tender. There are normal bowel sounds heard in all four quadrants and there is no organomegaly palpated. Musculoskeletal: There is no back tenderness noted. Extremities are non-tender with full range of motion. There is good capillary refill. There is no peripheral edema or calf tenderness elicited. Neurological: Patient is alert and oriented to person, place and time. The patient has symmetrical motor strength in all four extremities. Cranial nerves are grossly intact. Deep tendon reflexes are symmetrical and equal in all four extremities. Pt prefers to keep his eyes shut but is responsive and answers questions. Psychiatric: The patient has an appropriate affect and does not exhibit any anxiety or depression. Triage Information Reviewed: Yes Vital Signs On Initial Exam: Initial Vitals Temp Pulse Resp BP Pulse Ox 97.8 F 57 16 133/89 94 02/15/18 11:32 02/15/18 11:32 02/15/18 11:32 02/15/18 11:32 02/15/18 11:32 Vital Signs Reviewed: Yes Diagnostics - Vital Signs Vital Signs Temp Pulse Resp BP Pulse Ox 02/15/18 11:32 97.8 F 57 16 133/89 94 - Laboratory Result Diagrams: 02/15/18 11:58 02/15/18 11:58 Lab Statement: Any lab studies that have been ordered have been reviewed, and results considered in the medical decision making process. - EKG 1 EKG Rhythm: Sinus Bradycardia - @ 52 BPM EKG Interpretation: 12:04 EKG Comparison: No Significant Change - 11/12/17 Course/Dx Course Of Treatment: Mr. Singh presented to the emergency department by ambulance. The ambulance had been called for chest pain but on their arrival he was not complaining of chest pain but of almost passing out. He was feeling a little bit improved by the time he arrived here in the emergency department. He does not speak Yakut to any significant degree but his daughter is here translating for him immediately on arrival. He states that there've been 2 similar episodes one was last winter and one was in the spring and at that time he was admitted to the hospital and worked up and nothing was found. He was worked up here with labs including a delayed troponin and EKG and he was kept on the monitor. Nothing came up and he improved back to his baseline. It's unclear what these episodes aren't but another admission is unlikely to turn up an answer. He will need follow-up. - Diagnoses Provider Diagnoses: Syncope Discharge - Sign-Out/Discharge Documenting (check all that apply): Patient Departure - Discharge Plan Condition: Stable Disposition: HOME Patient Education Materials: Syncope (ED) Referrals: Laurie Dempsey MD [Primary Care Provider] - 4 Days (PLEASE F/U IN 3-5 DAYS ) Additional Instructions: RETURN FOR WORSENING SYMPTOMS - Billing Disposition and Condition Condition: STABLE Disposition: Home
[2018-02-15 12:17] LABS: ABS Basophils 0 10^3/ul (0-0.2); ABS Eosinophils 0.2 10^3/ul (0-0.6); ABS Lymphocytes 0.9 10^3/ul (1.0-4.8); ABS Monocytes 0.5 10^3/ul (0-0.8); ABS Neutrophils 3.7 10^3/ul (1.5-7.7); ABS Nucleated RBC 0 10^3/ul; Eosinophil % 3.6 % (0-6); Hematocrit 41 % (42-52); Hemoglobin 13.6 g/dl (14.0-18.0); Lymphocyte % 17.2 % (25-47); Mean Corpuscular HGB Conc 33 g/dl (31-36); Mean Corpuscular Hemoglobin 31 pg (27-31); Mean Corpuscular Volume 93 fL (80-94); Mean Platelet Volume 8.5 um3 (7.4-10.4); Nucleated Red Blood Cells % 0.1; Platelet Count 172 10^3/ul (150-450); Red Blood Count 4.41 10^6/ul (4.00-5.40); Red Cell Distribution Width 15 % (10.5-15); White Blood Count 5.3 10^3/ul (3.5-10.8)
[2018-02-15 12:23] LABS: INR 0.98 (0.77-1.02)
[2018-02-15] MEDS ORDERED: NS 0.9% 1000 ML* 1,000 ML IV ONE (12:30)
[2018-02-15 12:36] LABS: EGFR Non-African American 78.6 (>60)
[2018-02-15 16:15] LABS: Urine Appearance Clear; Urine Blood 1+ (Negative); Urine Color Straw; Urine Ketones Negative (Negative); Urine Protein Negative (Negative); Urine Red Blood Cell Trace(0-2/hpf) (Absent); Urine Specific Gravity 1.006 (1.010-1.030); Urine Urobilinogen Negative (Negative); Urine White Blood Cell Absent (Absent)
[2018-02-15 17:11] VITALS: BP 151/88
== END 2018-02-15 17:10 | disposition home or self-care (01) ==
LOC: ED 11:27
DX: R55 Syncope and collapse (principal); R00.1 Bradycardia, unspecified; R51 Headache; E03.9 Hypothyroidism, unspecified; I25.10 Atherosclerotic heart disease of native coronary artery without angina pectoris; I25.2 Old myocardial infarction; Z86.73 Personal history of transient ischemic attack (TIA), and cerebral infarction without residual deficits; Z82.49 Family history of ischemic heart disease and other diseases of the circulatory system
CPT/HCPCS: 36415; 80053; 81003; 81015; 83605; 83735; 83880; 84443; 84484; 85025; 85610; 93005; 96360; 96361; 99284

== ENCOUNTER 2018-02-21 09:09 | Emergency (ER) | payer MEDICARE, MEDICAID ==
--- NOTE | 2018-02-21 09:26 | UC ---
Dizzy HPI HPI Summary: A 77 y/o M [place] [facility] [place] episodes of dizziness onset September but occurring again last week. Per daughter who is translating, episodes have been happening more frequently this week. Pt was outside last night at a [employer], after walking a short distance, he began to feel dizzy. Pt passed out a week ago and was taken to ED on 02/15/18, dx: syncope and told to f/ u with PCP but he has not. HR and BP last week were low. Associated sx: weakness , lightheadedness, YUN. Denies CP. Pt is planning to travel to [place] in two days , and are concerned about traveling. Pt has a scopolamine patch below L ear. PCP is at [place]. Pt had a recent stress test. PMHx: ND. This is SooYoung rajan Silver, documenting for attending, Dr. Jarrett Mi MD. - History Of Current Complaint Stated Complaint: DIZZY Time Seen by Provider: 02/21/18 09:14 Hx Obtained From: Family/Family Centered Specialist - daughter, , Associate Professor Of Automation - daughter Onset/Duration: Still Present Timing: Intermittent Episode Lasting Severity Initially: Moderate Severity Currently: Moderate Character: Lightheaded, Weak Associated Signs And Symptoms: Negative: Chest Pain - Allergies/Home Medications Allergies/Adverse Reactions: Allergies Allergy/AdvReac Type Severity Reaction Status Date / Time No Known Allergies Allergy Verified 02/21/18 09:31 PMH/Surg Hx/FS Hx/Imm Hx Previously Healthy: No - pos: syncope Endocrine History: Hypothyroidism Cardiovascular History: Myocardial Infarction, Other Other Cardiovascular History: CAD - Surgical History Surgical History: None Surgery Procedure, Year, and Place: none - Family History Known Family History: Positive: Hypertension - Social History Occupation: Retired Lives: With Family Alcohol Use: None Substance Use Type: None Smoking Status (MU): Never Smoked Tobacco Review of Systems Cardiovascular: Other - CP Neurological: Headache, Weakness, Other - pos: dizziness/lightheadedness All Other Systems Reviewed And Are Negative: Yes Physical Exam - Summary Physical Exam Summary: General: well-appearing, no pain distress Skin: warm, color reflects adequate perfusion, dry Head: normal Eyes: L beating nystagmus ENT: serum in bilateral ear canals Neck: supple, nontender Respiratory: CTA, breath sounds present Cardiovascular: RRR Abdomen: soft, nontender Bowel: present Musculoskeletal: normal, strength/ROM intact Neurological: sensory/motor intact, A&O x3 Psychological: affect/mood appropriate Triage Information Reviewed: Yes Vital Signs Reviewed: Yes Diagnostics - Laboratory Diagnostic Studies Completed/Ordered: HEAD CT SCAN: As read by radiologist: No acute intracranial pathology. [facility] provider has reviewed this report and agrees with it. Re-Evaluation - Re-Evaluation First Eval Re-Evaluation Time: 10:26 Change: Unchanged Dizzy Course/Dx - Course Course Of Treatment: BP noted and advised to follow up with PCP. Medications reviewed. Allergies noted. NO CHANGE IN EKG, NO CHEST PAIN IN CLINIC. SYMPTOMS WORSE WITH ACTIVITY. RECENT W/U IN ED. PATIENT AND FAMILY DECLINE ED EVAL AND DECLINE LAB WORK HERE. THEY REQUEST AN RX FOR THE DIZZINESS. THEY HAVE A 2013 RX FOR SCOPALIMINE PATCH THEY WISH REFILLED. SX WORSE WITH EAR IRRIGATION. F/U PMD; GO TO ED IF WORSE. - Differential Dx/Diagnosis Provider Diagnoses: DIZZINESS. CERUMEN IMPACTION. LIGHTHEADEDNESS. NEAR SYNCOPE. HEADACHE Discharge - Sign-Out/Discharge Documenting (check all that apply): Patient Departure - Discharge Plan Condition: Stable Disposition: HOME Prescriptions: Carbamide Peroxide 6.5% OTIC* [DEBROX 6.5% Otic*] 5 drop BOTH EARS BID #1 bottle Meclizine HCl [Motion Sickness Relief-] 25 mg PO Q6H PRN #30 tab PRN Reason: Dizziness Scopolamine 1.5 mg* PATCH* [Transderm-Scop 1.5 mg Patch*] 1 patch TRANSDERM Q72H PRN #10 patch PRN Reason: Dizziness Patient Education Materials: Near Syncope (ED), Lightheadedness (ED), Dizziness (ED) Referrals: Laurie Dempsey MD [Primary Care Provider] - Additional Instructions: Your blood pressure was elevated during todays visit; please follow up with your primary care provider within a week for further evaluation. FOLLOW UP WITH YOUR DOCTOR. GET RECHECKED FOR ANY WORSENING OF YOUR CONDITION OR QUESTIONS OR CONCERNS. - Billing Disposition and Condition Condition: STABLE Disposition: Home
[2018-02-21 09:41] VITALS: BP 141/73
[2018-02-21] MEDS ORDERED: Meclizine TAB* 12.5 MG PO ONE (09:41)
--- NOTE | 2018-02-21 10:13 | RAD ---
HISTORY: DIZZINESS,OCCIPITAL HEADACHE COMPARISONS: August 27, 2017 TECHNIQUE: Multiple contiguous axial CT scans were obtained of the head without intravenous contrast. FINDINGS: HEMORRHAGE/INFARCT: There is no hemorrhage or acute infarct. MASSES/SHIFT: There is no mass or shift. EXTRA-AXIAL SPACES: There are no extra-axial fluid collections. SULCI AND VENTRICLES: The sulci and ventricles are normal in size and position for the patient's stated age. CEREBRUM: There is mild hypoattenuation of the periventricular and subcortical white matter. BRAINSTEM: There are no focal parenchymal abnormalities. CEREBELLUM: There are no focal parenchymal abnormalities. VESSELS: The vessels are grossly normal. PARANASAL SINUSES: The paranasal sinuses are clear. ORBITS: The orbits are unremarkable. BONES AND SOFT TISSUE: No bone or soft tissue abnormalities are noted. OTHER: None IMPRESSION: NO ACUTE INTRACRANIAL PATHOLOGY.
== END 2018-02-21 10:55 | disposition home or self-care (01) ==
LOC: UCEAST 09:09
DX: R42 Dizziness and giddiness (principal); H61.20 Impacted cerumen, unspecified ear; R55 Syncope and collapse; R51 Headache
CPT/HCPCS: 70450; 93005; 99213; A9270-GY; G0463

== ENCOUNTER 2018-04-27 20:29 | Observation (INO) | payer MEDICARE, MEDICAID ==
[2018-04-27] MEDS ORDERED: Aspirin 81 mg CHEW TAB* 81 MG TAB.CHEW PO ONE (21:12)
[2018-04-27] MEDS ORDERED: Nitroglycerin TAB 0.4 MG* 0.4 MG TAB SL ONE (21:13)
--- NOTE | 2018-04-27 21:16 | ED ---
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 A tele-chemical processor for Mandarin Egyptian was used in this ED visit. He endorses dizziness for past several months, intense thirst and dry mouth, SOB, recent travel to [place], bilateral LE numbness (R worse than L), limited ambulation today, and sx alleviation from closing eyes and scopolamine patch, which he has been using for the past few months, and the active patch has been on for 3 days. He denies CP at the moment. He notes that when checked at home, his HR was 99 (baseline in the 50s) and BP was 166/x, which were the main reasons they brought the patient to the ED. Then also endorse his blood pressure has been fluctuating lately. He denies N/V/D and abd pain. The pt does not check his blood sugar, does not take insulin, no PMHx DM. The pt endorses several previous ED visits for similar sx. PMHx meclizine, ASA, levothyroxine. - History of Current Complaint Chief Complaint: EDGeneral Time Seen by Provider: 04/27/18 20:37 Hx Obtained From: Patient, Family/Seismograph Recorder, Cardiac Cath Lab Radiology Technologist, Medical Records Timing: Constant, Lasting Minutes Initial Severity: Mild Current Severity: Mild Pain Intensity: 0 Pain Scale Used: 0-10 Numeric Chest Pain Location: Diffuse Chest Pain Radiates: No Aggravating Factor(s): Nothing Alleviating Factor(s): Nothing Associated Signs and Symptoms: Positive: Chest Pain, Numbness - BLE, right worse than left, Dizziness, Shortness of Breath. Negative: Fever, Nausea, Abdominal Pain, Vomiting - Additional Pertinent History Primary Care Physician: LAURA - Allergy/Home Medications Allergies/Adverse Reactions: Allergies Allergy/AdvReac Type Severity Reaction Status Date / Time No Known Allergies Allergy Verified 04/27/18 20:58 PMH/Surg Hx/FS Hx/Imm Hx Endocrine/Hematology History: Reports: Hx Thyroid Disease - hypothyroid Cardiovascular History: Reports: Hx Coronary Artery Disease, Hx Myocardial Infarction Sensory History: Denies: Hx Contacts or Glasses, Hx Legally Blind, Hx Deafness, Hx Hearing Aid Opthamlomology History: Denies: Hx Contacts or Glasses, Hx Legally Blind EENT History: Denies: Hx Deafness Neurological History: Reports: Hx Transient Ischemic Attacks (TIA), Other Neuro Impairments/Disorders - dizziness Psychiatric History: Denies: Hx Schizophrenia - Surgical History Surgery Procedure, Year, and Place: none Infectious Disease History: No Infectious Disease History: Reports: Traveled Outside the [place] in Last 30 Days - [place] in March - Family History Known Family History: Positive: Hypertension - Social History Occupation: Retired Lives: With Family Alcohol Use: None Hx Substance Use: No Substance Use Type: Reports: None Hx Tobacco Use: No Smoking Status (MU): Never Smoked Tobacco Review of Systems Negative: Fever, Chills Negative: Erythema Positive: Other - Dry mouth, intense thirst. Negative: Sore Throat Positive: Chest Pain Positive: Shortness Of Breath. Negative: Cough Negative: Abdominal Pain, Vomiting, Diarrhea, Nausea Negative: dysuria, hematuria Negative: Myalgia, Edema Negative: Rash Neurological: Other - Dizziness All Other Systems Reviewed And Are Negative: Yes Physical Exam - Summary Physical Exam Summary: Constitutional: Well-developed, Well-nourished, Alert. (-) Distressed. Choosing to close his eyes when speaking to me, only opens when asked. Skin: Warm, Dry. Scopolamine patch behind left ear. HENT: Normocephalic; Atraumatic, dry oral mucosa. Eyes: Conjunctiva normal Neck: Musculoskeletal ROM normal neck. (-) JVD, (-) Stridor, (-) Tracheal deviation Cardio: Rhythm regular, rate normal, Heart sounds normal; Intact distal pulses; The pedal pulses are 2+ and symmetric. Radial pulses are 2+ and symmetric. (-) Murmur Pulmonary/Chest wall: Effort normal. (-) Respiratory distress, (-) Wheezes, (-) Rales Abd: Soft, (-) epigastric tenderness, (-) Distension, (-) Guarding, (-) Rebound Musculoskeletal: (-) Edema Lymph: (-) Cervical adenopathy Neuro: Alert, Oriented x3 Psych: Mood and affect Normal Triage Information Reviewed: Yes Vital Signs On Initial Exam: Initial Vitals Temp Pulse Resp BP Pulse Ox 98.6 F 86 16 158/90 98 04/27/18 20:30 04/27/18 20:30 04/27/18 20:30 04/27/18 20:30 04/27/18 20:30 Vital Signs Reviewed: Yes Diagnostics - Vital Signs Vital Signs Temp Pulse Resp BP Pulse Ox 04/27/18 20:30 98.6 F 86 16 158/90 98 - Laboratory Result Diagrams: 04/27/18 21:27 04/27/18 21:27 Lab Statement: Any lab studies that have been ordered have been reviewed, and results considered in the medical decision making process. - Radiology CXR Xray Interpretation: No Acute Changes Radiology Interpretation Completed By: ED Physician - No acute disease. Pending official imaging report. - EKG 2126 Cardiac Rate: NL - 81 EKG Rhythm: Sinus Rhythm ST Segment: Normal Ectopy: None EKG Interpretation: No STEMI. Re-Evaluation - Re-Evaluation First Eval Re-Evaluation Time: 22:24 Change: Improved Comment: Pt endorses his CP is better with the NTG. 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 (+ ) SOB, dizziness, dry mouth and intense thirst, and BLE numbness with right worse than left. (-) abd pain, N/V/D. PMHx ME, HTN. Recently travelled in [place]. 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 A CXR was (-). An EKG reveals NSR at 81 BPM with no STEMI. In the ED course, pt was given ASA, NTG. - Diagnoses Provider Diagnoses: Chest pain, unspecified - Provider Notifications Discussed Care Of Patient With: Sami Oliver Time Discussed With Above Provider: 21:27 Instructed by Provider To: Other - Dr. Oliver made aware of the patient. Discharge - Sign-Out/Discharge Documenting (check all that apply): Patient Departure - admit - Discharge Plan Condition: Fair Disposition: ADMITTED TO [facility] Referrals: Laurie Dempsey MD [Primary Care Provider] - - Attestation Statements Document Initiated by Scribe: Yes Documenting Scribe: Misha Duarte Provider For Whom Scribe is Documenting (Include Credential): Dr. Yovany Norman MD Scribe Attestation: Misha Barksdale, scribed for Dr. Yovany Norman MD on 04/27/18 at 2226. Consult Consult: 2225 Dr. Oliver: accepts admission.
[2018-04-27 21:35] LABS: ABS Basophils 0 10^3/ul (0-0.2); ABS Eosinophils 0.1 10^3/ul (0-0.6); ABS Lymphocytes 0.8 10^3/ul (1.0-4.8); ABS Monocytes 0.5 10^3/ul (0-0.8); ABS Neutrophils 3.9 10^3/ul (1.5-7.7); ABS Nucleated RBC 0 10^3/ul; Eosinophil % 2.2 % (0-6); Hematocrit 43 % (42-52); Hemoglobin 14.2 g/dl (14.0-18.0); Lymphocyte % 14.4 % (25-47); Mean Corpuscular HGB Conc 33 g/dl (31-36); Mean Corpuscular Hemoglobin 31 pg (27-31); Mean Corpuscular Volume 93 fL (80-94); Mean Platelet Volume 8.7 um3 (7.4-10.4); Nucleated Red Blood Cells % 0.1; Platelet Count 168 10^3/ul (150-450); Red Blood Count 4.64 10^6/ul (4.00-5.40); Red Cell Distribution Width 15 % (10.5-15); White Blood Count 5.3 10^3/ul (3.5-10.8)
[2018-04-27 21:44] LABS: INR 0.94 (0.77-1.02)
[2018-04-27 21:55] LABS: EGFR Non-African American 67.4 (>60)
[2018-04-28 02:02] LABS: Urine Appearance Clear; Urine Blood Negative (Negative); Urine Color Yellow; Urine Ketones Negative (Negative); Urine Protein Negative (Negative); Urine Specific Gravity 1.012 (1.010-1.030); Urine Urobilinogen Negative (Negative)
--- NOTE | 2018-04-28 02:26 | HP ---
H&P (Free Text) History and Physical: PCP: Josh Dempsey MD Date/Time: 04/28/2018 0200 CC: malaise HPI: Mr Singh is a 78YO Slovak male who speaks Mandarin w/ very little Uzbek HX CAD/CT & hypothyroidism who presents tonight for complaint of sudden onset SOB, chest discomfort, numbness/tingling from B knees down, fatigue, & dizziness. ED work up is entirely unremarkable. His daughter fom which much of his history is obtained states he has had a chemical stress test, ECHO, & MRI of the brain through [place] this year. He will be admitted for telemetry monitoring and troponin trending. Records from [place] requested. PMedHx CAD/CT hypothyroidism Ambulatory Orders Nursing to reconcile. 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 FamHx: negative for CAD/CVA ROS: as above, otherwise reviewed and all were negative vitals: Vital Signs Temp 37.0 C 04/27/18 20:30 Pulse 60 04/27/18 23:00 Resp 19 04/27/18 23:00 BP 117/84 04/27/18 22:48 Pulse Ox 95 04/27/18 23:00 Intake & Output 04/27/18 04/27/18 04/28/18 11:59 23:59 11:59 Weight 68.039 kg Constitutional: NAD, normally developed, well-nourished elderly male HEENM: atraumatic; sclera/conjunctiva: anicteric/clear; hearing: clinically intact; oropharynx: clear, mucosa moist Neck: soft tissue: non-tender, no nuchal rigidity; thyroid: normal Pulmonary: clear to auscultation bilaterally, good aeration, no accessory muscle use CV: RR/RR, normal S1S2, no carotid bruit, no jugular venous distention, 2+ B DP/ PT, no edema Abdominal: soft, non-distended, non-tender, no rebound/guarding/rigidity, normoactive bowel sounds, no hepatosplenomegaly or masses, no costovertebral angle tenderness Musculoskeletal: general: grossly intact, no tenderness w/ palpation Integumental: normal appearance and texture of exposed skin Psychiatric orientation: AA&O to PPS affect: calm mood: cooperative eye contact: fair content: reliable per responses: timely insight: fair to good Testing: Lab Results 04/27/18 04/27/18 04/27/18 Range/Units 21:27 21:27 21:27 WBC 5.3 (3.5-10.8) 10^3/ul RBC 4.64 (4.00-5.40) 10^6/ul Hgb 14.2 (14.0-18.0) g/dl Hct 43 (42-52) % MCV 93 (80-94) fL MCH 31 (27-31) pg MCHC 33 (31-36) g/dl RDW 15 (10.5-15) % Plt Count 168 (150-450) 10^3/ul MPV 8.7 (7.4-10.4) um3 Neut % (Auto) 73.8 (38-83) % Lymph % (Auto) 14.4 L (25-47) % [place] % (Auto) 9.0 H (0-7) % Eos % (Auto) 2.2 (0-6) % Baso % (Auto) 0.6 (0-2) % Absolute Neuts (auto) 3.9 (1.5-7.7) 10^3/ul Absolute Lymphs (auto) 0.8 L (1.0-4.8) 10^3/ul Absolute Monos (auto) 0.5 (0-0.8) 10^3/ul Absolute Eos (auto) 0.1 (0-0.6) 10^3/ul Absolute Basos (auto) 0 (0-0.2) 10^3/ul Absolute Nucleated RBC 0 10^3/ul Nucleated RBC % 0.1 INR (Anticoag Therapy) 0.94 (0.77-1.02) APTT 34.5 (26.0-36.3) seconds Sodium 140 (135-145) mmol/L Potassium 3.8 (3.5-5.0) mmol/L Chloride 106 (101-111) mmol/L Carbon Dioxide 26 (22-32) mmol/L Anion Gap 8 (2-11) mmol/L BUN 17 (6-24) mg/dL Creatinine 1.06 (0.67-1.17) mg/dL Est GFR ( Amer) 81.5 (>60) Est GFR (Non-Af Amer) 67.4 (>60) BUN/Creatinine Ratio 16.0 (8-20) Glucose 166 H (70-100) mg/dL Lactic Acid (0.5-2.0) mmol/L Calcium 9.3 (8.6-10.3) mg/dL Total Bilirubin 0.40 (0.2-1.0) mg/dL AST 27 (13-39) U/L ALT 32 (7-52) U/L Alkaline Phosphatase 71 (34-104) U/L Troponin I 0.00 (<0.04) ng/mL Total Protein 6.8 (6.4-8.9) g/dL Albumin 3.9 (3.2-5.2) g/dL Globulin 2.9 (2-4) g/dL Albumin/Globulin Ratio 1.3 (1-3) TSH 2.16 (0.34-5.60) mcIU/mL Free T4 0.97 (0.61-1.12) ng/dL Urine Color Urine Appearance Urine pH (5-9) Ur Specific [place] (1.010-1.030) Urine Protein (Negative) Urine Ketones (Negative) Urine Blood (Negative) Urine Nitrate (Negative) Urine Bilirubin (Negative) Urine Urobilinogen (Negative) Ur Leukocyte Esterase (Negative) Urine Glucose (Negative) 04/27/18 04/28/18 04/28/18 Range/Units 21:27 00:14 01:34 WBC (3.5-10.8) 10^3/ul RBC (4.00-5.40) 10^6/ul Hgb (14.0-18.0) g/dl Hct (42-52) % MCV (80-94) fL MCH (27-31) pg MCHC (31-36) g/dl RDW (10.5-15) % Plt Count (150-450) 10^3/ul MPV (7.4-10.4) um3 Neut % (Auto) (38-83) % Lymph % (Auto) (25-47) % [place] % (Auto) (0-7) % Eos % (Auto) (0-6) % Baso % (Auto) (0-2) % Absolute Neuts (auto) (1.5-7.7) 10^3/ul Absolute Lymphs (auto) (1.0-4.8) 10^3/ul Absolute Monos (auto) (0-0.8) 10^3/ul Absolute Eos (auto) (0-0.6) 10^3/ul Absolute Basos (auto) (0-0.2) 10^3/ul Absolute Nucleated RBC 10^3/ul Nucleated RBC % INR (Anticoag Therapy) (0.77-1.02) APTT (26.0-36.3) seconds Sodium (135-145) mmol/L Potassium (3.5-5.0) mmol/L Chloride (101-111) mmol/L Carbon Dioxide (22-32) mmol/L Anion Gap (2-11) mmol/L BUN (6-24) mg/dL Creatinine (0.67-1.17) mg/dL Est GFR ( Amer) (>60) Est GFR (Non-Af Amer) (>60) BUN/Creatinine Ratio (8-20) Glucose (70-100) mg/dL Lactic Acid 1.6 1.1 (0.5-2.0) mmol/L Calcium (8.6-10.3) mg/dL Total Bilirubin (0.2-1.0) mg/dL AST (13-39) U/L ALT (7-52) U/L Alkaline Phosphatase (34-104) U/L Troponin I (<0.04) ng/mL Total Protein (6.4-8.9) g/dL Albumin (3.2-5.2) g/dL Globulin (2-4) g/dL Albumin/Globulin Ratio (1-3) TSH (0.34-5.60) mcIU/mL Free T4 (0.61-1.12) ng/dL Urine Color Yellow Urine Appearance Clear Urine pH 7.0 (5-9) Ur Specific [place] 1.012 (1.010-1.030) Urine Protein Negative (Negative) Urine Ketones Negative (Negative) Urine Blood Negative (Negative) Urine Nitrate Negative (Negative) Urine Bilirubin Negative (Negative) Urine Urobilinogen Negative (Negative) Ur Leukocyte Esterase Negative (Negative) Urine Glucose Negative (Negative) ECG, personally reviewed: NSR rate 81, no ischemia CXR, personally reviewed: no acute process Impression: 78M HX CAD/CT & hypothyroidism presents reporting numerous complaints including chest discomfort, numbness/tingling B knees to feet, SOB, chronic dizziness DIAGNOSIS & PLAN Primary chest discomfort/SOB r/o ACS : HX CAD/CT : telemetry : trend troponin : aspirin given in ED : obtain records from PCP : supplemental oxygen : supportive care Secondary hypothyroidism : continue levothyroxine Admission Rational: observation for r/o ACS DVTp: SCDs Code Status: full HCP:
[2018-04-28] MEDS ORDERED: Ondansetron ODT TAB* 4 MG PO PRN (02:33)
[2018-04-28] MEDS ORDERED: Acetaminophen TAB* 325 MG PO PRN (02:33)
[2018-04-28] MEDS ORDERED: Meclizine TAB* 12.5 MG PO PRN (02:34)
[2018-04-28] MEDS ORDERED: Scopolamine 1.5 mg* PATCH TRANSDERM PRN (02:34)
[2018-04-28] MEDS ORDERED: NS 0.9% 1000 ML* 1,000 ML IV SCH (02:45)
[2018-04-28] MEDS ORDERED: Omeprazole CAP* 20 MG PO SCH (06:00)
[2018-04-28] MEDS ORDERED: Levothyroxine TAB* 25 MCG TAB PO SCH (06:00)
--- NOTE | 2018-04-28 07:21 | RAD ---
INDICATION: Lethargy. COMPARISON: Comparison is made with a prior chest x-ray study from November 12, 2017. TECHNIQUE: A portable view of the chest was obtained. FINDINGS: Cardiac and mediastinal contours appear to be within normal limits. The lungs are clear. No pleural effusion is seen. IMPRESSION: NO EVIDENCE FOR ACUTE DISEASE. R1
[2018-04-28] MEDS ORDERED: Aspirin EC TAB* 81 MG TAB.EC PO SCH (09:00)
[2018-04-28] MEDS ORDERED: Docusate CAP* 100 MG PO SCH (09:00)
[2018-04-28 11:40] VITALS: BP 127/67
--- NOTE | 2018-04-29 07:36 | DS ---
CC: Dr. Dempsey.* DISCHARGE SUMMARY: DATE OF ADMISSION: 04/28/18 DATE OF DISCHARGE: 04/28/18. PRIMARY CARE PROVIDER: Dr. Dempsey. PRIMARY DIAGNOSIS: Vertigo. SECONDARY DIAGNOSES: Includes CAD, hypothyroidism, potential anxiety. MEDICATIONS ON DISCHARGE: Unchanged from admission include: 1. Meclizine 25 mg every 6 hours as needed for vertigo. 2. Synthroid 25 mcg daily. 3. Aspirin 81 mg daily. 4. Scopolamine 1.5 mg patch every 72 hours. PERTINENT IMAGING PERFORMED DURING HOSPITAL STAY: Chest x-ray, impression: No evidence for acute disease. PERTINENT LABORATORY DATA: D-dimer less than 200, troponin I 0.00 on 3 consecutive checks. Lactic acid 1.6, urine benign. HISTORY OF PRESENT ILLNESS AND HOSPITAL COURSE: This is a 78-year-old gentleman Mandarin speaking only. Past medical history as outlined in the history of present illness on the day of admission including CAD and hypothyroidism, as well as vertigo for which he has been following Dr. Dempsey 's office with multiple hospital stays this year including problems with syncope as well as vertigo and now chest pain. The patient was interviewed with the assistance of medical genetics director, now using family. During the course of my interview, the patient indicated that he never had any chest pain which the daughter corroborated at the time of his presentation and that he had felt dizzy with tingling in both his lower extremities that resolved overnight without intervention. The daughter was Bengali speaking and served as a dollyman and prior indicated that he had never complained of dizziness the night before and both herself and the patient's had thought he had difficulty breathing in the apartment before they brought him to the emergency room. Nevertheless, the patient was admitted for constellation of symptoms which was thought to include acute onset shortness of breath, chest discomfort and numbness in bilateral legs, fatigue and dizziness. On the day of discharge , he was feeling back to his baseline. This year in evaluation of his dizziness , he has had an MRI as well as a stress test in September. In discussing with the patient as well as his daughter, I think there is some component of anxiety and possibly panic attack after the patient develops his dizziness that progresses to potentially hyperventilation and then extremity paraesthesia before his presentation. The daughter agrees that underlying anxiety is likely playing a role in evolution of his symptoms. I note that he has a referral to ENT from last week for further evaluation of his vertigo which I agreeable and encouraged the family to call the office to expedite making an appointment. There are no complications during the course of the hospital stay. At followup please; 1. Ensure the patient follows with the ENT. 2. No other specific labs or vitals that need followup. Reasons to return to the hospital include, but not limited to, recurrent or worsening symptoms including vertigo, chest pain, shortness of breath, nausea, vomiting, paraesthesias, lightheadedness, loss of consciousness or near loss of consciousness, inability to obtain or tolerate any medications were discussed with the patient and the family, they acknowledged understanding. TIME SPENT: Greater than 45 minutes was spent on the discharge of this patient , greater than half was spent [id number] with the patient. [id number]/CPS #: [id number] [id number]
[2018-05-01] MEDS ORDERED: Scopolamine PATCH Remove* 1 NOTE MISC PATCH OFF PRN (09:00)
== END 2018-04-28 16:20 | disposition home or self-care (01) ==
LOC: ED 20:29 → MEDTELE 04-28 02:30
PROVIDERS: ADMIT Hospitalist; ATTEND Internal Medicine
DX: R42 Dizziness and giddiness (principal); I25.10 Atherosclerotic heart disease of native coronary artery without angina pectoris; I10 Essential (primary) hypertension; I25.2 Old myocardial infarction; E03.9 Hypothyroidism, unspecified; Z79.899 Other long term (current) drug therapy; R06.02 Shortness of breath
CPT/HCPCS: 36415; 71045; 80053; 81003; 83605; 84439; 84443; 84484; 85025; 85379; 85610; 85730; 87040; 93005; 99284; A9270-GY; G0378; G8978-GP-CI; G8979-GP-CI; G8980-GP-CI

== ENCOUNTER 2018-12-02 09:08 | Emergency (ER) | payer MEDICARE, MEDICAID ==
[2018-12-02 09:43] VITALS: BP 136/78
--- NOTE | 2018-12-02 09:46 | UC ---
Complaint Male HPI - HPI Summary HPI Summary: Melody CAI HAS HAD 1 MONTH OF INTERMITTENT RIGHT LOWER QUADRANT PAIN ALONG WITH DYSURIA, URINARY FREQUENCY AND URGENCY. STATES HE HAS HAD SOME MILD RIGHT- SIDED BACK PAIN WELL. DENIES FEVER. NO NAUSEA. - History of Current Complaint Chief Complaint: UCGU Stated Complaint: pain during urination Time Seen by Provider: 12/02/18 09:40 Hx Obtained From: Patient, Family/Lithographic Press Operator Apprentice - DAUGHTER Onset/Duration: Gradual Onset, Lasting Weeks, Still Present Severity Initially: Moderate Severity Currently: Moderate Pain Intensity: 5 Pain Scale Used: 0-10 Numeric Location: Groin Character: Burning Aggravating Factor(s): Voiding Alleviating Factor(s): Nothing Associated Signs And Symptoms: Positive: Back Pain, Dysuria. Negative: Fever, Nausea - Allergies/Home Medications Allergies/Adverse Reactions: Allergies Allergy/AdvReac Type Severity Reaction Status Date / Time pain medication Allergy See Comment Uncoded 12/02/18 09:40 Home Medications: Home Medications Calcium Carbonate [Calcium] 1 tab PO DAILY 12/02/18 [History Confirmed 12/02/18] Lecithin 518 mg PO DAILY 12/02/18 [History Confirmed 12/02/18] [place]-3 Fatty Acids (Nf) [Fish Oil (NF)] 1 tab PO DAILY 12/02/18 [History Confirmed 12/02/18] Ubidecarenone [Co Q-10] 100 mg PO DAILY 12/02/18 [History Confirmed 12/02/18] PMH/Surg Hx/FS Hx/Imm Hx Cardiovascular History: Hypertension - Surgical History Surgical History: Yes Surgery Procedure, Year, and Place: none - Family History Known Family History: Positive: Hypertension - Social History Alcohol Use: None Substance Use Type: None Smoking Status (MU): Never Smoked Tobacco Review of Systems All Other Systems Reviewed And Are Negative: Yes Constitutional: Positive: Negative Respiratory: Positive: Negative Cardiovascular: Positive: Negative Gastrointestinal: Positive: Abdominal Pain. Negative: Nausea Genitourinary: Positive: Dysuria, Frequency, Urgency Physical Exam Triage Information Reviewed: Yes Appearance: Well-Appearing, No Pain Distress, Well-Nourished Vital Signs: Initial Vital Signs Temp 97.5 F 12/02/18 09:19 Pulse 61 12/02/18 09:19 Resp 18 12/02/18 09:19 BP 136/78 12/02/18 09:19 Pulse Ox 96 12/02/18 09:19 Laboratory Tests 12/02/18 09:53 POC Urine Color Yellow POC Urine Clarity Clear POC Urine pH 6.5 POC Ur Specif [place] 1.010 POC Urine Protein Negative POC Ur Glucose (UA) Negative POC Urine Ketones Negative POC Urine Blood Trace-intact A POC Urine Nitrite Negative POC Urine Bilirubin Negative POC Urine Urobilinogen 0.2 POC U Leukocyte Esteras Negative Vital Signs Reviewed: Yes Eyes: Positive: Conjunctiva Clear ENT: Positive: Hearing grossly normal Neck: Positive: Supple Respiratory Exam: Normal Cardiovascular Exam: Normal Abdomen Description: Positive: Soft, CVA Tenderness (R), Other: - RLQ TENDERNESS. NO REBOUND OR RIGIDITY. Negative: CVA Tenderness (L), Distended, Guarding Bowel Sounds: Positive: Present Musculoskeletal: Positive: No Edema Neurological: Positive: Alert Psychological: Positive: Age Appropriate Behavior Skin: Negative: Rashes Diagnostics - Radiology CT ABD/PELVIS W/O CONTRAST Radiology Interpretation Completed By: Radiologist Summary of Radiographic Findings: NO HYDRONEPHROSIS OR NEPHROLITHIASIS. NORMAL APPENDIX. ENLARGED PROSTATE. Complaint Male Course/Dx - Course Course Of Treatment: CT SCAN TODAY SHOWS AN ENLARGED PROSTATE BUT NO EVIDENCE OF A KIDNEY STONE OR ABNORMAL APPENDIX. ADVISED UROLOGY FOLLOW-UP. HAVE GIVEN FLOMAX FOR PATIENT TO TRY TO SEE IF IT IMPROVES HIS SYMPTOMS. TO THE ER WITHOUT FAIL IF SYMPTOMS WORSEN. PATIENT IS IN NO DISTRESS WITH NO FEVER OR PYURIA. CONSIDER POSSIBILITY OF CHRONIC PROSTATITIS HOWEVER IN LIGHT OF HIS MILD SYMPTOMS WILL NOT INITIATE ANY ANTIBIOTIC TREATMENT TODAY. PATIENT'S DAUGHTER STATES SHE WILL CALL UROLOGY TODAY TO SCHEDULE AN APPOINTMENT FOR NEXT WEEK. - Differential Dx/Diagnosis Provider Diagnosis: Enlarged prostate Discharge - Sign-Out/Discharge Documenting (check all that apply): Patient Departure All imaging exams completed and their final reports reviewed: Yes - Discharge Plan Condition: Stable Disposition: HOME Prescriptions: Tamsulosin CAP* [Flomax CAP*] 0.4 mg PO DAILY #30 cap Patient Education Materials: Enlarged Prostate (BPH) (ED) Referrals: [facility] [Provider Group] - 1 Week Laurie Dempsey MD [Primary Care Provider] - If Needed Additional Instructions: CT SCAN TODAY SHOWED A NORMAL APPENDIX AND NO EVIDENCE OF A KIDNEY STONE. YOUR PROSTATE IS DIFFUSELY ENLARGED WHICH MAY BE CONTRIBUTING TO YOUR SYMPTOMS. TAKE FLOMAX DAILY THIS MAY HELP WITH THE URINARY HESITANCY. CALL UROLOGY TODAY TO SET UP A FOLLOW-UP APPOINTMENT FOR NEXT WEEK FOR FURTHER EVALUATION. - Billing Disposition and Condition Condition: STABLE Disposition: Home
== END 2018-12-02 11:42 | disposition home or self-care (01) ==
LOC: UCEAST 09:08
DX: N40.1 Benign prostatic hyperplasia with lower urinary tract symptoms (principal); R35.0 Frequency of micturition; R39.15 Urgency of urination; R30.0 Dysuria; R10.31 Right lower quadrant pain; I10 Essential (primary) hypertension
CPT/HCPCS: 74176; 81003; 99212; G0463

== ENCOUNTER 2024-08-12 03:34 | Observation (INO) ==
[2024-08-12 04:54] LABS: ABS Lymphocytes 0.5 10^3/uL (1.0-4.8); ABS Monocytes 0.5 10^3/uL (0.0-1.1); ABS Neutrophils 3.3 10^3/uL (1.5-7.6); Hematocrit 41.4 % (38-53); Lymphocyte % 10.6 %; Mean Corpuscular Hemoglobin 30.9 pg (27-33); Mean Corpuscular Hgb Conc 33.7 g/dL (31-36); Mean Corpuscular Volume 91.6 fL (80-97); Mean Platelet Volume 7.8 fL (7.5-11.2); Nucleated Red Blood Cells % 0.1 %/100WBC (0.0-0.8); Platelet Count 181 10^3/uL (150-450); Red Blood Count 4.52 10^6/uL (4.06-5.63); Red Cell Distribution Width 15.3 % (12-17); White Blood Count 4.3 10^3/uL (3.6-10.2)
[2024-08-12 05:44] LABS: C Reactive Protein 23.54 mg/L (<8.01); Calcium 7.7 mg/dL (8.6-10.3); Creatinine, Serum 0.91 mg/dL (0.67-1.17); Magnesium 1.8 mg/dL (1.9-2.7); Potassium 3.7 mmol/L (3.5-5.0); eGFR CKD-EPI 82.6 (>60)
[2024-08-12] MEDS: Cefepime 2 GM in Dextrose 2 GM/50 ML BAG IV ONE (06:02)
[2024-08-12] MEDS: Magnesium Sulfate 2 gm BAG 2 GM/50 ML BAG IVPB ONE (06:38)
[2024-08-12] MEDS: NS 0.9% 500 ml BAG 500 ML IV ONE (06:38)
[2024-08-12 06:42] LABS: High Sensitivity Troponin 1 Hr 12 pg/mL (<20)
[2024-08-12] MEDS: Iohexol 350 (CONTRAST) 500 ML MDV IV ONE ×2 (07:04→11:45)
[2024-08-12 08:34] LABS: Urine Appearance Clear; Urine Bacteria Absent /HPF (Absent); Urine Bilirubin Negative (Negative); Urine Blood Negative (Negative); Urine Color Yellow; Urine Glucose Negative (Negative); Urine Ketones 2+ (Negative); Urine Nitrite Negative (Negative); Urine Protein 1+ (>=30 mg/dL) (Negative); Urine Red Blood Cell 1+(3-5/hpf) /HPF (0-Trace); Urine Specific Gravity >1.050 (1.002-1.030); Urine Urobilinogen Negative (Negative); Urine White Blood Cell Trace(0-5/hpf) /HPF (0-Trace)
[2024-08-12] MEDS ORDERED: Remdesivir 100 mg Vial 100 MG in NS 0.9% 250 ml 230 ML IV SCH (10:15)
[2024-08-12] MEDS: Enoxaparin 40 MG/0.4 ML SYR SUBCUT SCH (10:23)
[2024-08-12 11:02] LABS: Total Bilirubin 0.4 mg/dL (0.2-1.0)
[2024-08-12] MEDS: Remdesivir 100 mg Vial 200 MG in NS 0.9% 250 ml 210 ML IV ONE (11:29)
[2024-08-12 15:11] LABS: INR 1.14 (0.85-1.14)
[2024-08-13 06:22] LABS: Hematocrit 39.4 % (38-53); Hemoglobin 13.4 g/dL (13.2-16.3); Mean Corpuscular Hemoglobin 31.1 pg (27-33); Mean Corpuscular Hgb Conc 34.1 g/dL (31-36); Mean Corpuscular Volume 91.2 fL (80-97); Platelet Count 181 10^3/uL (150-450); Red Blood Count 4.32 10^6/uL (4.06-5.63); Red Cell Distribution Width 15.1 % (12-17); White Blood Count 2.9 10^3/uL (3.6-10.2)
[2024-08-13 06:31] LABS: INR 1.15 (0.85-1.14)
[2024-08-13 06:42] LABS: ABS Lymphocytes 0.6 10^3/uL (1.0-4.8); ABS Monocytes 0.6 10^3/uL (0.0-1.1); ABS Neutrophils 1.6 10^3/uL (1.5-7.6); ABS Nucleated RBC 0.01 10^3/ul; Lymphocyte % 21.1 %; Nucleated Red Blood Cells % 0.3 %/100WBC (0.0-0.8)
[2024-08-13 06:46] LABS: Albumin 3.1 g/dL (3.5-5.7); Albumin/Globulin Ratio 1.1 (1-3); Calcium 7.6 mg/dL (8.6-10.3); Creatinine, Serum 0.88 mg/dL (0.67-1.17); Globulin 2.8 g/dL (2-4); Magnesium 2.1 mg/dL (1.9-2.7); Potassium 3.9 mmol/L (3.5-5.0); Total Bilirubin 0.3 mg/dL (0.2-1.0); Total Protein 5.9 g/dL (6.4-8.9); eGFR CKD-EPI 84.3 (>60)
[2024-08-13] MEDS: Remdesivir 100 mg Vial 100 MG in NS 0.9% 250 ml 230 ML IV SCH (08:19)
[2024-08-13] MEDS ORDERED: cefTRIAXone 1 gm/50 mL D5W 1 GM/50 ML BAG IV SCH (09:00)
[2024-08-13] MEDS: cefTRIAXone 1 gm/50 mL D5W 1 GM/50 ML BAG IV SCH (10:43)
[2024-08-13 13:07] VITALS: BP 107/64
== END 2024-08-13 14:25 | disposition home or self-care (01) ==
LOC: EDHOLD 03:34 → ED 03:34 → MEDTELE 13:17
PROVIDERS: ADMIT Student in an Organized Health Care Education/Training Program; ATTEND Student in an Organized Health Care Education/Training Program

== ENCOUNTER 2024-08-18 09:54 | Inpatient (IN) ==
[2024-08-18 10:28] LABS: Hematocrit 43.3 % (38-53); Hemoglobin 14.6 g/dL (13.2-16.3); Mean Corpuscular Hgb Conc 33.8 g/dL (31-36); Mean Corpuscular Volume 91.9 fL (80-97); Mean Platelet Volume 8.5 fL (7.5-11.2); Platelet Count 234 10^3/uL (150-450); Red Blood Count 4.71 10^6/uL (4.06-5.63); Red Cell Distribution Width 15.2 % (12-17); White Blood Count 9.9 10^3/uL (3.6-10.2)
[2024-08-18 10:45] LABS: INR 1.13 (0.85-1.14)
[2024-08-18 11:00] LABS: ABS Basophils 0.1 10^3/uL (0.0-0.1); ABS Lymphocytes 0.8 10^3/uL (1.0-4.8); ABS Neutrophils 7.9 10^3/uL (1.5-7.6); Eosinophil % 0.3 %; Lymphocyte % 8.4 %; Nucleated Red Blood Cells % 0.1 %/100WBC (0.0-0.8)
[2024-08-18 11:42] LABS: C Reactive Protein 22.92 mg/L (<8.01)
[2024-08-18 11:59] LABS: High Sensitivity Troponin 1 Hr 8 pg/mL (<20)
[2024-08-18 11:59] LABS: Albumin 3.4 g/dL (3.5-5.7); Albumin/Globulin Ratio 1.1 (1-3); Calcium 8.3 mg/dL (8.6-10.3); Creatinine, Serum 0.97 mg/dL (0.67-1.17); Globulin 3.1 g/dL (2-4); Potassium 3.5 mmol/L (3.5-5.0); Total Bilirubin 0.8 mg/dL (0.2-1.0); Total Protein 6.5 g/dL (6.4-8.9); eGFR CKD-EPI 76.5 (>60)
[2024-08-18 12:45] LABS: Activated Partial Thrombo Time 29.7 seconds (26.0-38.0)
[2024-08-18 12:48] LABS: Urine Appearance Clear; Urine Bilirubin Negative (Negative); Urine Blood Negative (Negative); Urine Color Light-Yellow; Urine Glucose Negative (Negative); Urine Ketones Negative (Negative); Urine Nitrite Negative (Negative); Urine Protein Negative (Negative); Urine Urobilinogen Negative (Negative); Urine pH 5.5 (5.0-8.0)
[2024-08-18] MEDS: Iohexol 350 (CONTRAST) 500 ML MDV IV ONE (15:13)
[2024-08-18] MEDS: Dexamethasone IV 4 MG/ML VIAL 1 ml VIAL IV SLOW PU ONE (16:12)
[2024-08-18] MEDS ORDERED: Al Hydrox/Mg Hydrox/Simet LIQ 30 ML UDC PO PRN (16:18)
[2024-08-18] MEDS: Remdesivir 100 mg Vial 100 MG in NS 0.9% 250 ml 230 ML IV SCH (18:28)
[2024-08-18] MEDS: Enoxaparin 40 MG/0.4 ML SYR SUBCUT SCH (18:28)
[2024-08-19 11:52] LABS: ABS Lymphocytes 0.6 10^3/uL (1.0-4.8); ABS Monocytes 0.7 10^3/uL (0.0-1.1); ABS Neutrophils 6.5 10^3/uL (1.5-7.6); ABS Nucleated RBC 0.01 10^3/ul; Eosinophil % 0.1 %; Hematocrit 40.6 % (38-53); Lymphocyte % 7.5 %; Mean Corpuscular Hemoglobin 31.2 pg (27-33); Mean Corpuscular Hgb Conc 34.6 g/dL (31-36); Mean Corpuscular Volume 90.4 fL (80-97); Mean Platelet Volume 8.2 fL (7.5-11.2); Nucleated Red Blood Cells % 0.1 %/100WBC (0.0-0.8); Platelet Count 216 10^3/uL (150-450); Red Cell Distribution Width 15.1 % (12-17); White Blood Count 7.8 10^3/uL (3.6-10.2)
[2024-08-19 12:15] LABS: Creatinine, Serum 0.85 mg/dL (0.67-1.17); Potassium 3.6 mmol/L (3.5-5.0); eGFR CKD-EPI 85.2 (>60)
[2024-08-20 06:45] LABS: ABS Lymphocytes 0.6 10^3/uL (1.0-4.8); ABS Monocytes 0.8 10^3/uL (0.0-1.1); ABS Neutrophils 8.2 10^3/uL (1.5-7.6); ABS Nucleated RBC 0.01 10^3/ul; Hematocrit 38.5 % (38-53); Hemoglobin 13.1 g/dL (13.2-16.3); Lymphocyte % 5.9 %; Mean Corpuscular Hemoglobin 31.2 pg (27-33); Mean Corpuscular Hgb Conc 34.1 g/dL (31-36); Mean Corpuscular Volume 91.5 fL (80-97); Mean Platelet Volume 8.4 fL (7.5-11.2); Nucleated Red Blood Cells % 0.1 %/100WBC (0.0-0.8); Platelet Count 218 10^3/uL (150-450); Red Blood Count 4.21 10^6/uL (4.06-5.63); Red Cell Distribution Width 15.4 % (12-17); White Blood Count 9.5 10^3/uL (3.6-10.2)
[2024-08-20 07:22] LABS: Calcium 7.8 mg/dL (8.6-10.3); Creatinine, Serum 0.77 mg/dL (0.67-1.17); Magnesium 1.9 mg/dL (1.9-2.7); Potassium 3.9 mmol/L (3.5-5.0); eGFR CKD-EPI 87.7 (>60)
[2024-08-20 09:53] VITALS: BP 123/73
== END 2024-08-20 15:10 | disposition home or self-care (01) | DRG 177 ==
LOC: ED 09:54 → EDHOLD 09:54 → SUATTDRO 16:18 → MED 20:14
PROVIDERS: ADMIT Internal Medicine; ATTEND Student in an Organized Health Care Education/Training Program